=== PATIENT | male | born 1950 | race Caucasian/White ===

== ENCOUNTER 2017-11-26 11:18 | Emergency (ER) | payer MEDICARE, OTHER ==
[2017-11-26] MEDS ORDERED: Acetaminophen 500 MG Tab PO ONE (11:40)
[2017-11-26] MEDS ORDERED: HYDROmorphone 2 MG/ML SDV IM ONE ×2 (12:15→12:41)
[2017-11-26] MEDS ORDERED: Ondansetron 4 MG Tab.DIS PO ONE (12:16)
[2017-11-26] MEDS ORDERED: HYDROmorphone 2 MG/ML SDV ONE (12:42)
--- NOTE | 2017-11-28 12:36 | CR ---
INDICATION: Right ankle injury. RIGHT ANKLE: Three views of the right ankle were obtained 11/26/2017. No comparisons. Bimalleolar fractures are noted with lateral subluxation of the talus with respect to the tibia. Lateral offset of the distal fibular and medial malleolar fracture fragments is noted. A comminuted fracture is present at the medial malleolus. IMPRESSION: Bimalleolar fracture subluxation. MTDD
--- NOTE | 2017-11-30 10:17 | ER ---
DATE SEEN: 11/26/2017 TIME SEEN: The patient was seen at 0030 hours. HISTORY OF PRESENT ILLNESS: This is a pleasant 67-year-old retired, male, who comes in with a history of fall. He was at [facility]. He suddenly lost his balance and fell down. He denies chest pain, shortness of breath, myocardial infarction, or CVA. He has hypertension, diabetes, and is status post cholecystectomy, appendectomy, and documented diverticulosis and also calcification of head of the pancreas (08/21/[address] of the abdomen). He has also extensive atherosclerotic vascular disease with calcification and plaque formation in his abdominal vessels. He has a very significant history of copper shortage after he had a gastric resection for ulcers. It took four years for them to diagnose the copper shortage. He went to [facility]. 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 No history of gait discomfort, headache, or head trauma with fall this morning. He denies upper extremity injury, but he has extensive deformity of his right lower extremity medial and lateral malleoli. Vital signs with blood pressure 115/73, heart rate 81 and sinus, respiratory rate 18, oxygen saturation 96, he has a bradycardia of 48, temperature is 36.4 degrees centigrade, and 84.8 kg. ALLERGIES: Codeine, venlafaxine, and egg whites. MEDICATIONS: 1. Optive for his eye. 2. Carboxymethylcellulose-glycerin. 3. Levothyroxine 25 mcg daily. 4. Simvastatin 40 mg daily. 5. Lisinopril 20 mg daily. 6. Terazosin 5 mg daily. 7. Lasix 40 mg daily. 8. Finasteride 5 mg. 9. Ropinirole 0.5 mg. 10.Bentyl 10 mg p.r.n. 11.Multivitamins. 12.Omeprazole 20 mg. 13.Gabapentin 300 mg. 14.Potassium chloride 10 mEq. 15.Acidophilus. 16.Cyanocobalamin. 17.Primidone (Mysoline). 18.Glucosamine chondroitin. 19.Ferrous sulfate. 20.Calcium carbonate. 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 PHYSICAL EXAMINATION: VITAL SIGNS: Blood pressure 115/73, heart rate 81, respirations 18, oxygen saturation 96%, and temperature is 36.4 degrees centigrade. GENERAL: The patient is a tall, athletic man, who is in moderate discomfort with marked swelling in right lower extremity. HEENT: PERRLA intact. Pharynx is without abnormality. TMs negative. LUNGS: Clear without rales, rhonchi, or wheezes. HEART: S1 and S2. No murmur. ABDOMEN: Soft. No guarding. No abdominal discomfort. No CVA percussion tenderness or spinous process tenderness. EXTREMITIES: Hips without abnormality. Right lower extremity has prominent, marked swelling at the medial and lateral malleoli with dorsalis pedis intact. Bilateral lower extremity mild stasis dermatitis. DIAGNOSTIC STUDIES: X-ray reveals a bimalleolar fracture of right lower extremity with partial talar shift. As mentioned - is offset. EMERGENCY ROOM COURSE: The patient received 2 mg Dilaudid plus Zofran. With the nurse and the woman who has arrived with him (I am not sure if she is his or his daughter), with traction, the ankle was reduced and placed in anatomical position. Dorsalis pedis is intact, and an Orthoplast posterior splint was applied by MD with ample padding placement. The patient tolerated the procedure well. Pulses and sensation intact with posterior splint in place. PLAN: 1. The patient is dismissed. Follow up with Dr. Bertrand. 2. Dr. Bertrand's staff will call him tomorrow and make arrangements for a preop H and P. 3. He is to elevate his leg and not walk, only to go to the bathroom or only to get up and eat. Otherwise, it needs to be above his heart to diminish the swelling. 4. Ice packs. 5. Percocet 1 to 2 tablets q.4-6 hours p.r.n., [address] Bertrand has been contacted, and his staff will be calling the patient tomorrow and make arrangements for followup and surgery. Surgery is planned probably on Tuesday this week, November 30, 2017. /[id number] 193 SULEIMAN/BAKARI LAWSON
== END 2017-11-26 13:30 | disposition home or self-care (01) ==
LOC: FB.ED 11:18
DX: S82.841A Displaced bimalleolar fracture of right lower leg, initial encounter for closed fracture (principal); Z79.899 Other long term (current) drug therapy; W18.30XA Fall on same level, unspecified, initial encounter; Y92.513 Shop (commercial) as the place of occurrence of the external cause; Z88.5 Allergy status to narcotic agent; Z88.8 Allergy status to other drugs, medicaments and biological substances
CPT/HCPCS: 12042; 27810; 73610; 96372; 99283; A9270; J1170

== ENCOUNTER 2017-11-30 07:16 | Day surgery (SDC) | payer MEDICARE, OTHER ==
[2017-11-30] MEDS ORDERED: Lactated Ringers 1,000 ML IV SCH (07:30)
[2017-11-30] MEDS ORDERED: ceFAZolin 2 GM in Premix Bag 1 BAG IV ONE (09:00)
--- NOTE | 2017-11-30 09:42 | PCM.CONS ---
H&P History of Present Illness - General Date of Service: 11/30/17 Admit Problem/Dx: Admission Diagnosis/Problem Admission Diagnosis/Problem Fracture of ankle Source of Information: Patient, Family History Limitations: Reports: No Limitations - History of Present Illness Onset of Symptoms: Reports: Sudden Symptom Onset Date: 11/27/17 Duration of Symptoms: Reports: Day(s): Location: Reports: Lower Extremity, Right Quality: Reports: Ache, Burning, Dull Severity: Moderate Improves with: Reports: Immobilization Worsens with: Reports: Movement Associated Symptoms: Reports: No Other Symptoms - Related Data Allergies/Adverse Reactions: Allergies Allergy/AdvReac Type Severity Reaction Status Date / Time codeine Allergy Difficulty Verified 11/30/17 08:17 Breathing venlafaxine [From Effexor] Allergy Tachycardia Verified 11/30/17 08:17 egg white Allergy Diarrhea Uncoded 11/30/17 08:17 Home Medications: Home Meds Calcium Carb/Vitamin D3/Soyb [V-R Soy Formula Caplet] 1 ea PO BID 11/29/17 [ History] Carboxymethyl/Gly/Poly80/Pf [Refresh Optive Mateo-3 Drops] 1 drop EYEBOTH ASDIRECTED PRN 11/29/17 [History] Cholecalciferol (Vitamin D3) [Vitamin D3] 5,000 units PO DAILY 11/29/17 [History ] Cupric Sulfate Pentahydrate [Cupric Sulfate] 2 mg PO BID 11/29/17 [History] Cyanocobalamin (Vitamin B-12) [B-12] 1,000 mcg PO DAILY 11/29/17 [History] Dicyclomine [Bentyl] 10 mg PO ASDIRECTED PRN 11/29/17 [History] Ferrous Sulfate [Ferosul] 325 mg PO DAILY 11/29/17 [History] Finasteride [Proscar] 5 mg PO BEDTIME 11/29/17 [History] Furosemide 40 mg PO DAILY PRN 11/29/17 [History] Gabapentin [Neurontin] 900 mg PO TID 11/29/17 [History] Gluc 2KCl/Chondr/Jeri Hy/Hy Ac [Glucosamine & Chondroitin Cap] 1 ea PO BID 11/29 [History] Lactobacillus Acidophilus [Acidophilus] 2 ea PO DAILY 11/29/17 [History] Levothyroxine 25 mcg PO DAILY 11/29/17 [History] Lisinopril 20 mg PO DAILY 11/29/17 [History] Multivitamin with Minerals [Multiple Vitamin] 1 ea PO DAILY 11/29/17 [History] Omeprazole 20 mg PO ACBREAKFAST 11/29/17 [History] Potassium Chloride 10 meq PO BIDMEALS 11/29/17 [History] Primidone [Mysoline] 50 mg PO BEDTIME 11/29/17 [History] Simvastatin [Zocor] 40 mg PO BEDTIME 11/29/17 [History] Terazosin [Hytrin] 5 mg PO BEDTIME 11/29/17 [History] Vit C/Clara Ac/Lut/Copper/ZnOx [Preservision Lutein Softgel] 1 ea PO DAILY [History] rOPINIRole [Requip] 0.5 mg PO BEDTIME 11/29/17 [History] oxyCODONE HCl/Acetaminophen [Percocet 5-325 mg Tablet] 1 each PO Q4HR PRN [History] Past Medical History HEENT History: Reports: Impaired Vision, Macular Degeneration, Other (See Below) Other HEENT History: macular scar of the right eye. NUCLEAR SCLEROSIS BILATERAL ,. SEASONAL ALLERGIES Cardiovascular History: Reports: High Cholesterol, Hypertension Respiratory History: Reports: Other (See Below) Other Respiratory History: seasonal allergies Gastrointestinal History: Reports: GERD Genitourinary History: Reports: Other (See Below) Other Genitourinary History: benign prostatic hyperplasia without urinary tract symptoms. Musculoskeletal History: Reports: Fracture, Other (See Below) Other Musculoskeletal History: chronic fatigue syndrome, idiopathic peripheral neuropathy. Neurological History: Reports: Neuropathy, Peripheral Other Neuro History: MYOPATHY Psychiatric History: Reports: None Endocrine/Metabolic History: Reports: Hypothyroidism Hematologic History: Reports: Anemia Immunologic History: Reports: None Oncologic (Cancer) History: Reports: None Dermatologic History: Reports: Other (See Below) - Past Surgical History Head Surgeries/Procedures: Reports: None HEENT Surgical History: Reports: Naso-Sinus Surgery, Tonsillectomy Other Cardiovascular Surgeries/Procedures: CARDIAC CATHETERIZATION 2008,2009 Respiratory Surgical History: Reports: None GI Surgical History: Reports: Appendectomy, Bariatric Procedure, Cholecystectomy , Colonoscopy, EGD, Hernia Repair/Other Other GI Surgeries/Procedures: GASTRIC BIPASS 2009 Male Surgical History: Reports: Vasectomy Endocrine Surgical History: Reports: None Neurological Surgical History: Reports: None Musculoskeletal Surgical History: Reports: Other (See Below) Other Musculoskeletal Surgeries/Procedures:: CYST REMOVED FROM RIGHT KNEE Oncologic Surgical History: Reports: None Dermatological Surgical History: Reports: Other (See Below) Social & Family History - Family History Family Medical History: Noncontributory - Tobacco Use Smoking Status *Q: Never Smoker - Caffeine Use Caffeine Use: Reports: Soda - Recreational Drug Use Recreational Drug Use: No H&P Review of Systems - Review of Systems: Review Of Systems: See Below General: Reports: No Symptoms HEENT: Reports: No Symptoms Pulmonary: Reports: No Symptoms Cardiovascular: Reports: No Symptoms Gastrointestinal: Reports: No Symptoms Genitourinary: Reports: No Symptoms Musculoskeletal: Reports: Leg Pain, Joint Pain, Joint Swelling Skin: Reports: No Symptoms Psychiatric: Reports: No Symptoms Neurological: Reports: No Symptoms Hematologic/Lymphatic: Reports: No Symptoms Immunologic: Reports: No Symptoms Exam - Exam Exam: See Below - Vital Signs Vital Signs: Last Vital Signs Temp 97.7 F 11/30/17 07:49 Pulse 82 11/30/17 07:49 Resp 14 11/30/17 07:49 BP 137/96 H 11/30/17 07:49 Pulse Ox 96 11/30/17 07:49 Weight: 187 lb - Exam General: Alert, Oriented HEENT: PERRLA, Conjunctiva Clear, Hearing Intact, Mucosa Moist & [place] Neck: Supple, Trachea Midline Lungs: Normal Respiratory Effort GI/Abdominal Exam: No Organomegaly, No Distention Extremities: Joint Swelling, Limited Range of Motion Peripheral Pulses: 2+: Dorsalis Pedis (L), Dorsalis Pedis (R) Skin: Warm, Dry, Intact, Ecchymosis Neurological: Cranial Nerves Intact, Reflexes Equal Bilateral Neuro Extensive - Mental Status: Alert, Oriented x3, Normal Mood/Affect Psychiatric: Alert, Normal Affect, Normal Mood Consult PN Assessment/Plan Procedures: Procedures CT ABD & PELV W/CONTRAST (08/21/14) ELECTRICAL STIMULATION (03/17/16) MANUAL THERAPY 1/> REGIONS (04/27/16) MRI LUMBAR SPINE W/O DYE (03/10/16) PT EVALUATION (03/17/16) THERAPEUTIC EXERCISES (04/07/16) ULTRASOUND THERAPY (03/17/16) Problem List Initiated/Reviewed/Updated: Yes My Orders Last 24 Hours: My Active Orders 11/29/17 15:04 Resuscitation Status Routine 11/30/17 07:30 Patient Status [ADT] Routine Patient to Empty Bladder [RC] ASDIRECTED RT Incentive Spirometry [RC] ASDIRECTED Verify Patient Consent Obtain [RC] ASDIRECTED Lactated Ringers [Ringers, Lactated] 1,000 ml IV ASDIRECTED Peripheral IV Insertion Adult [OM.PC] Routine Sequential Compression Device [OM.PC] Routine 11/30/17 Breakfast Nothing Per Oral Diet [DIET] Plan: A: 67 yo male closed bimalleolar ankle fracture P: H and P done by outside physician. Will perform ORIF today. 2 week follow up in ortho clinic. NWB RLE on crutches or walker for 6-9 weeks. No driving 9 weeks. Requesting Provider: lalita Patient History Reviewed: Yes Admission H&P Reviewed: Yes Notified Requestor: Yes
[2017-11-30] MEDS ORDERED: Midazolam 1 MG/ML 2 ML SDV IV ONE (10:00)
[2017-11-30] MEDS ORDERED: Lactated Ringers 1,000 ML IV ONE (10:00)
[2017-11-30] MEDS ORDERED: Ketorolac 30 MG/ML SDV IVPUSH ONE (10:00)
[2017-11-30] MEDS ORDERED: Bupivacaine 0.75%/D5W 2 ML Amp INJECT ONE (10:00)
[2017-11-30] MEDS ORDERED: Propofol 200 MG/20 ML SDV IV ONE (10:00)
[2017-11-30] MEDS ORDERED: fentaNYL 100 MCG/2 ML SDV IV ONE (10:00)
[2017-11-30] MEDS ORDERED: ePHEDrine 50 MG/ML SDV IV ONE (10:00)
[2017-11-30] MEDS ORDERED: Bupivacaine 0.5%/EPINEPHrine 1:200,000 50 ML MDV INJECT ONE (11:24)
[2017-11-30] MEDS ORDERED: Acetaminophen/oxyCODONE 325-5 MG Tab PO ONE (12:46)
[2017-11-30] MEDS ORDERED: Ketorolac 30 MG/ML SDV IM ONE (13:04)
--- NOTE | 2017-11-30 14:57 | CR ---
INDICATION: ORIF of ankle fracture. FLUOROSCOPY UP TO ONE HOUR: 0.1 minute fluoroscopy time with C-arm in OR was utilized in open reduction of bimalleolar fracture. Good position and alignment of the medial and lateral malleolar fracture fragments appears to be satisfactory with two screws fixing the fracture fragments of the medial malleolus and a plate with screws and one single screw fixing the fibular fracture fragments. The ankle mortise appears to be intact. MEDARDOD
--- NOTE | 2017-12-07 16:09 | OR ---
DATE OF OPERATION: 11/30/2017 SURGEON: Atul Bertrand DO PREOPERATIVE DIAGNOSIS: Right bimalleolar ankle fracture, closed. POSTOPERATIVE DIAGNOSIS: Right bimalleolar ankle fracture, closed. PROCEDURE: Open reduction and internal fixation, right bimalleolar ankle fracture. ANESTHESIA: Spinal plus conscious sedation. FLUIDS: Lactated Ringer's solution. ESTIMATED BLOOD LOSS: Less than 25 mL. COMPLICATIONS: None. SPECIMENS: None. DISCHARGE DISPOSITION: Stable to PACU. HISTORY/INDICATIONS FOR THE PROCEDURE: The patient was seen on the morning of the surgery. He had been seen in emergency department, where he was found to have bimalleolar ankle fracture. I was called and asked the emergency department to put him in a posterior splint. He was [facility]operatively [facility] for preoperative history and physical. Risks and benefits of the procedure were explained to the patient and informed consent was obtained. Preoperative imaging confirmed the above-mentioned diagnosis. DETAILS OF THE PROCEDURE: The patient was seen preoperatively by myself and anesthesia staff in the preoperative holding area, where the operative site was marked. He was brought to the operative suite by the anesthesia staff where spinal anesthesia plus conscious sedation was administered. A well-padded tourniquet was placed on the right thigh. A bump was placed under right hip. All extremities found to be well padded. The right lower extremity was prepped and draped in a sterile manner. A time-out was called identifying the correct patient, the correct procedure, the correct site, and that antibiotics had been infiltrated at appropriate period of time. The right lower extremity was then exsanguinated. Tourniquet was raised to 300 mmHg. I then made an incision over the distal fibula and then used an elevator, bluntly raised the tissue off the bone and visualized the fracture site. I irrigated the fracture site, removed any blood clots. I then used a clamp to reduce the fracture and then placed a leg screw. We then placed an anatomic distal fibular plate and then placed my cortical screws first followed by the distal locking screws. After this, I completely irrigated with saline and then closed with #1 Stratafix and skin rachelle. I then focused on the medial malleolar fragment. I made an incision over the distal medial malleolus. I was able to visualize the fracture site. The distal fragment had spun. Hence, I did take a little bit of time to get my best anatomical reduction possible. I did drill a small hole in the proximal cortex that aided with bone clamp. I clamped it into position and confirmed good position under fluoroscopy. I then placed two 45 mm cannulated screws after placing the guidewires and confirming good placement. After the screws were placed, I removed the guidewires, irrigated with saline, closed with #1 Stratafix and skin rachelle. We then placed Betadine soaked Adaptic over both incisions followed by 4 x 4 sponges and Webril and then placed an Byron on, and then, placed him into a water boot. Tourniquet was let down after closure. The patient was then taken to the PACU in stable condition. /[id number] DISHA/BAKARI
== END 2017-11-30 14:22 | disposition home or self-care (01) ==
LOC: FB.SDS 07:16
PROVIDERS: ATTEND Orthopaedic Surgery
DX: S82.841A Displaced bimalleolar fracture of right lower leg, initial encounter for closed fracture (principal); I10 Essential (primary) hypertension; E03.9 Hypothyroidism, unspecified; E78.00 Pure hypercholesterolemia, unspecified; G60.9 Hereditary and idiopathic neuropathy, unspecified; G72.9 Myopathy, unspecified; K21.9 Gastro-esophageal reflux disease without esophagitis; N40.0 Benign prostatic hyperplasia without lower urinary tract symptoms; W19.XXXA Unspecified fall, initial encounter; Z79.899 Other long term (current) drug therapy; Z91.012 Allergy to eggs; Z88.5 Allergy status to narcotic agent; Z88.8 Allergy status to other drugs, medicaments and biological substances; Z91.048 Other nonmedicinal substance allergy status
CPT/HCPCS: 01480; 27814; 76000; A9270; C1713; J0690; J1885; J2250; J2704; J3010; J7120

== ENCOUNTER 2018-01-10 05:34 | Inpatient (IN) | payer MEDICARE, OTHER ==
[2018-01-10] MEDS: Sodium Chloride 0.9% 10 ML Syringe FLUSH PRN ×3 (05:40→10:05)
[2018-01-10] MEDS ORDERED: Sodium Chloride 0.9% 1,000 ML IV ONE ×2 (05:56→07:03)
--- NOTE | 2018-01-10 06:07 | EDM.PDOC ---
ED HPI GENERAL MEDICAL PROBLEM - General Chief Complaint: Abdominal Pain Stated Complaint: CONSTIPATION Time Seen by Provider: 01/10/18 05:55 Source of Information: Reports: Patient, Family History Limitations: Reports: No Limitations - History of Present Illness INITIAL COMMENTS - FREE TEXT/NARRATIVE: Presents with constipation x 3-4 days, no improvement with fleet's enema. Developed abdominal pain and urinary retention yesterday associated with nausea , no vomiting. History of partial gastrectomy and vagotomy (due to PUD), appendectomy and cholecystectomy. Denies h/o bowel obstruction. Also complains of dizziness and mouth feeling dry. Had ORIF of right ankle fracture 11/30/17, wound became infected 1 week ago, currently on Bactrim. Denies fevers, chills, chest pain, cough or shortness of breath. Location: Reports: Abdomen (lower) Quality: Reports: Ache Severity: Moderate Lower Abdominal Pain Score (Numeric/FACES): 6 - Related Data Allergies Allergy/AdvReac Type Severity Reaction Status Date / Time codeine Allergy Difficulty Verified 01/10/18 06:28 Breathing venlafaxine [From Effexor] Allergy Tachycardia Verified 01/10/18 06:28 egg white Allergy Diarrhea Uncoded 11/30/17 08:17 Home Meds: Home Meds Calcium Carb/Vitamin D3/Soyb [V-R Soy Formula Caplet] 1 ea PO BID 11/29/17 [ History] Carboxymethyl/Gly/Poly80/Pf [Refresh Optive Mateo-3 Drops] 1 drop EYEBOTH ASDIRECTED PRN 11/29/17 [History] Cholecalciferol (Vitamin D3) [Vitamin D3] 5,000 units PO DAILY 11/29/17 [History ] Cupric Sulfate Pentahydrate [Cupric Sulfate] 2 mg PO BID 11/29/17 [History] Cyanocobalamin (Vitamin B-12) [B-12] 1,000 mcg PO DAILY 11/29/17 [History] Dicyclomine [Bentyl] 10 mg PO ASDIRECTED PRN 11/29/17 [History] Ferrous Sulfate [Ferosul] 325 mg PO DAILY 11/29/17 [History] Finasteride [Proscar] 5 mg PO BEDTIME 11/29/17 [History] Furosemide 40 mg PO DAILY PRN 11/29/17 [History] Gabapentin [Neurontin] 900 mg PO TID 11/29/17 [History] Gluc 2KCl/Chondr/Jeri Hy/Hy Ac [Glucosamine & Chondroitin Cap] 1 ea PO BID 11/29 [History] Lactobacillus Acidophilus [Acidophilus] 2 ea PO DAILY 11/29/17 [History] Levothyroxine 25 mcg PO DAILY 11/29/17 [History] Lisinopril 20 mg PO DAILY 11/29/17 [History] Multivitamin with Minerals [Multiple Vitamin] 1 ea PO DAILY 11/29/17 [History] Omeprazole 20 mg PO ACBREAKFAST 11/29/17 [History] Potassium Chloride 10 meq PO BIDMEALS 11/29/17 [History] Primidone [Mysoline] 50 mg PO BEDTIME 11/29/17 [History] Simvastatin [Zocor] 40 mg PO BEDTIME 11/29/17 [History] Terazosin [Hytrin] 5 mg PO BEDTIME 11/29/17 [History] Vit C/Clara Ac/Lut/Copper/ZnOx [Preservision Lutein Softgel] 1 ea PO DAILY [History] rOPINIRole [Requip] 0.5 mg PO BEDTIME 11/29/17 [History] oxyCODONE HCl/Acetaminophen [Percocet 5-325 mg Tablet] 1 each PO Q4HR PRN [History] Sulfamethoxazole/Trimethoprim [Septra DS] 1 tab PO BID 01/10/18 [History] Past Medical History HEENT History: Reports: Impaired Vision, Macular Degeneration, Other (See Below) Other HEENT History: macular scar of the right eye. NUCLEAR SCLEROSIS BILATERAL ,. SEASONAL ALLERGIES Cardiovascular History: Reports: High Cholesterol, Hypertension. Denies: CAD, [place] Respiratory History: Reports: Other (See Below) Other Respiratory History: seasonal allergies Gastrointestinal History: Reports: GERD, PUD Genitourinary History: Reports: Other (See Below) Other Genitourinary History: benign prostatic hyperplasia without urinary tract symptoms. Musculoskeletal History: Reports: Fracture, Other (See Below) Other Musculoskeletal History: chronic fatigue syndrome, idiopathic peripheral neuropathy. Neurological History: Reports: Neuropathy, Peripheral Other Neuro History: MYOPATHY Psychiatric History: Reports: None Endocrine/Metabolic History: Reports: Hypothyroidism Hematologic History: Reports: Anemia Immunologic History: Reports: None Oncologic (Cancer) History: Reports: None Dermatologic History: Reports: Other (See Below) - Past Surgical History Head Surgeries/Procedures: Reports: None HEENT Surgical History: Reports: Naso-Sinus Surgery, Tonsillectomy Other Cardiovascular Surgeries/Procedures: CARDIAC CATHETERIZATION 2008,2009 Respiratory Surgical History: Reports: None GI Surgical History: Reports: Appendectomy, Cholecystectomy, Colonoscopy, EGD, Hernia Repair/Other, Other (See Below) Other GI Surgeries/Procedures: partial gastrectomy and vagotomy 1993, revision 2009 Male Surgical History: Reports: Vasectomy Endocrine Surgical History: Reports: None Neurological Surgical History: Reports: None Musculoskeletal Surgical History: Reports: Other (See Below) Other Musculoskeletal Surgeries/Procedures:: CYST REMOVED FROM RIGHT KNEE Oncologic Surgical History: Reports: None Dermatological Surgical History: Reports: Other (See Below) Social & Family History - Family History Family Medical History: Noncontributory - Tobacco Use Smoking Status *Q: Never Smoker - Caffeine Use Caffeine Use: Reports: Soda - Alcohol Use Alcohol Use History: No ED ROS GENERAL - Review of Systems Review Of Systems: See Below Constitutional: Reports: No Symptoms HEENT: Reports: Other (dry mouth) Respiratory: Reports: No Symptoms Cardiovascular: Reports: No Symptoms Endocrine: Reports: No Symptoms GI/Abdominal: Reports: Abdominal Pain (low), Constipation, Nausea. Denies: Vomiting : Reports: Urinary Retention Musculoskeletal: Reports: Other (right ankle pain) Skin: Reports: Other (redness to right ankle) Neurological: Reports: Dizziness. Denies: Headache Psychiatric: Reports: No Symptoms Immunologic: Reports: No Symptoms ED EXAM, GI/ABD - Physical Exam Exam: See Below Exam Limited By: No Limitations General Appearance: Alert, WD/WN, No Apparent Distress Eyes: Bilateral: Normal Appearance, EOMI Ears: Normal External Exam Nose: Normal Inspection Throat/Mouth: No Airway Compromise, Other (dry oral mucosa) Head: Atraumatic, Normocephalic Neck: Normal Inspection, Supple Respiratory/Chest: No Respiratory Distress, Lungs Clear, Normal Breath Sounds, No Accessory Muscle Use Cardiovascular: Regular Rate, Rhythm, No Gallop, No JVD, No Murmur, No Rub GI/Abdominal Exam: Normal Bowel Sounds, Soft, No Distention, No Abnormal Bruit, No Mass, Tender (suprapubic) Extremities: Other (erythema and warmth right ankle) Neurological: Alert, Oriented, No Motor/Sensory Deficits Psychiatric: Normal Affect, Normal Mood Skin Exam: No Rash EKG INTERPRETATION EKG Date: 01/10/18 Time: 06:20 Rhythm: NSR Rate (Beats/Min): 92 EKG Interpretation Comments: occasional PVCs, no acute ischemia Course - Vital Signs Last Recorded V/S: Last Vital Signs Temp 36.1 C 01/10/18 05:34 Pulse 82 01/10/18 07:00 Resp 20 01/10/18 05:34 BP 111/64 01/10/18 07:00 Pulse Ox 97 01/10/18 05:34 - Orders/Labs/Meds Orders: Active Orders 24 hr Category Date Time Status Admission Status [Patient Status] [ADT] Routine ADT 01/10/18 09:00 Ordered EKG Documentation Completion [RC] ASDIRECTED Care 01/10/18 05:49 Active Nino Catheter Insertion [Insert Urinary Catheter] [OM. Care 01/10/18 06:00 Ordered PC] Q24H Urinary Catheter Assessment [RC] QSHIFT Care 01/10/18 05:50 Active Abdomen Pelvis wo Cont [CT] Stat Exams 01/10/18 07:13 Taken CXR [Chest 1V Frontal] [CR] Stat Exams 01/10/18 07:13 Taken BASIC METABOLIC PANEL,BMP [CHEM] Stat Lab 01/10/18 08:06 Ordered CULTURE BLOOD [BC] Stat Lab 01/10/18 06:15 Results CULTURE BLOOD [BC] Stat Lab 01/10/18 06:25 Results LACTIC ACID [CHEM] Stat Lab 01/10/18 08:05 Ordered UA W/MICROSCOPIC [URIN] Stat Lab 01/10/18 06:10 Ordered Sodium Chloride 0.9% [Normal Saline] 1,000 ml Med 01/10/18 08:45 Active IV ASDIRECTED Sodium Chloride 0.9% [Saline Flush] Med 01/10/18 05:57 Active 10 ml FLUSH ASDIRECTED PRN Sodium Chloride 0.9% [Saline Flush] Med 01/10/18 05:59 Active 10 ml FLUSH ASDIRECTED PRN Vancomycin 500 mg Med 01/10/18 08:15 Active Vancomycin 750 mg Sodium Chloride 0.9% [Normal Saline] 250 ml IV ONETIME metroNIDAZOLE/Normal Saline [Flagyl 500 MG in NS 100 ML Med 01/10/18 08:24 Active ] 500 mg Premix Bag 1 bag IV ONETIME Blood Culture x2 Reflex Set [OM.PC] Urgent Oth 01/10/18 05:49 Ordered Saline Lock Insert [OM.PC] Routine Oth 01/10/18 05:57 Ordered Saline Lock Insert [OM.PC] Routine Oth 01/10/18 05:59 Ordered EKG 12 Lead [EK] Stat Ther 01/10/18 05:48 Ordered Medication Orders Vancomycin HCl 500 mg/Vancomycin HCl 750 mg/ Sodium Chloride 250 mls @ 200 mls/ hr IV ONETIME ONE Stop: 01/10/18 09:29 Last Admin: 01/10/18 08:09 Dose: 200 mls/hr Metronidazole 500 mg/ Premix 100 mls @ 100 mls/hr IV ONETIME ONE Stop: 01/10/18 09:23 Sodium Chloride (Normal Saline) 1,000 mls @ 100 mls/hr IV ASDIRECTED AMEENA Sodium Chloride (Saline Flush) 10 ml FLUSH ASDIRECTED PRN PRN Reason: Keep Vein Open Last Admin: 01/10/18 05:40 Dose: 10 ml Sodium Chloride (Saline Flush) 10 ml FLUSH ASDIRECTED PRN PRN Reason: Keep Vein Open Last Admin: 01/10/18 06:00 Dose: 10 ml Labs: Laboratory Tests 01/10/18 01/10/18 01/10/18 Range/Units 06:10 06:15 06:15 WBC 20.5 H (4.5-12.0) X10-3/uL RBC 4.75 (4.30-5.75) x10(6)uL Hgb 14.7 (11.5-15.5) g/dL Hct 42.6 (30.0-51.3) % MCV 89.6 (80-96) fL MCH 31.0 (27.7-33.6) pg MCHC 34.6 (32.2-35.4) g/dL RDW 12.7 (11.5-15.5) % Plt Count 297 (125-369) X10(3)uL MPV 8.6 (7.4-10.4) fL Add Manual Diff Yes Neutrophils % (Manual) 88 H (46-82) % Band Neutrophils % 4 (0-6) % Lymphocytes % (Manual) 4 L (13-37) % Monocytes % (Manual) 4 (4-12) % PT (8.7-11.1) INR (0.89-1.13) Sodium 133 L (135-145) mmol/L Potassium 4.0 (3.5-5.3) mmol/L Chloride 96 L (100-110) mmol/L Carbon Dioxide 19 L (21-32) mmol/L BUN 27 H (7-18) mg/dL Creatinine 3.3 H* (0.70-1.30) mg/dL Est Cr Clr Drug Dosing 19.15 mL/min Estimated GFR (MDRD) 19 L (>60) BUN/Creatinine Ratio 8.2 L (9-20) Glucose 158 H (80-116) mg/dL Lactic Acid (0.4-2.2) mmol/L Calcium 9.7 (8.6-10.2) mg/dL Total Bilirubin 0.3 (0.1-1.3) mg/dL AST 17 (5-25) IU/L ALT 15 (12-36) U/L Alkaline Phosphatase 71 (56-112) IU/L Total Protein 6.8 (6.0-8.0) g/dL Albumin 3.2 (3.2-4.6) g/dL Globulin 3.6 g/dL Albumin/Globulin Ratio 0.9 Urine Color Yellow (YELLOW) Urine Appearance Slightly cloudy (CLEAR) Urine pH 5.0 (5.0-6.5) Ur Specific [place] 1.020 (1.010-1.025) Urine Protein Negative (NEGATIVE) mg/dL Urine Glucose (UA) Normal (NEGATIVE) mg/dL Urine Ketones Negative (NEGATIVE) mg/dL Urine Occult Blood Negative (NEGATIVE) Urine Nitrite Negative (NEGATIVE) Urine Bilirubin Negative (NEGATIVE) Urine Urobilinogen Normal (NEGATIVE) mg/dL Ur Leukocyte Esterase Negative (NEGATIVE) Urine RBC 0-5 (0) Urine WBC 0-5 (0) Ur Squamous Epith Cells Occasional (NS,R,O) Amorphous Sediment Moderate Urine Bacteria Rare H (NS) Blood Type Gel Antibody Screen 01/10/18 01/10/18 01/10/18 Range/Units 06:25 06:25 06:25 WBC (4.5-12.0) X10-3/uL RBC (4.30-5.75) x10(6)uL Hgb (11.5-15.5) g/dL Hct (30.0-51.3) % MCV (80-96) fL MCH (27.7-33.6) pg MCHC (32.2-35.4) g/dL RDW (11.5-15.5) % Plt Count (125-369) X10(3)uL MPV (7.4-10.4) fL Add Manual Diff Neutrophils % (Manual) (46-82) % Band Neutrophils % (0-6) % Lymphocytes % (Manual) (13-37) % Monocytes % (Manual) (4-12) % PT 10.2 (8.7-11.1) INR 1.05 (0.89-1.13) Sodium (135-145) mmol/L Potassium (3.5-5.3) mmol/L Chloride (100-110) mmol/L Carbon Dioxide (21-32) mmol/L BUN (7-18) mg/dL Creatinine (0.70-1.30) mg/dL Est Cr Clr Drug Dosing mL/min Estimated GFR (MDRD) (>60) BUN/Creatinine Ratio (9-20) Glucose (80-116) mg/dL Lactic Acid 5.3 H* (0.4-2.2) mmol/L Calcium (8.6-10.2) mg/dL Total Bilirubin (0.1-1.3) mg/dL AST (5-25) IU/L ALT (12-36) U/L Alkaline Phosphatase (56-112) IU/L Total Protein (6.0-8.0) g/dL Albumin (3.2-4.6) g/dL Globulin g/dL Albumin/Globulin Ratio Urine Color (YELLOW) Urine Appearance (CLEAR) Urine pH (5.0-6.5) Ur Specific [place] (1.010-1.025) Urine Protein (NEGATIVE) mg/dL Urine Glucose (UA) (NEGATIVE) mg/dL Urine Ketones (NEGATIVE) mg/dL Urine Occult Blood (NEGATIVE) Urine Nitrite (NEGATIVE) Urine Bilirubin (NEGATIVE) Urine Urobilinogen (NEGATIVE) mg/dL Ur Leukocyte Esterase (NEGATIVE) Urine RBC (0) Urine WBC (0) Ur Squamous Epith Cells (NS,R,O) Amorphous Sediment Urine Bacteria (NS) Blood Type A POSITIVE Gel Antibody Screen Negative Meds: Medications Generic Name Dose Route Start Last Admin Trade Name Freq PRN Reason Stop Dose Admin Vancomycin HCl 500 mg/ 250 mls @ 200 mls/hr 01/10/18 08:15 01/10/18 08:09 Vancomycin HCl 750 mg/ Sodium IV 01/10/18 09:29 200 mls/hr Chloride ONETIME ONE Administration Metronidazole 500 mg/ Premix 100 mls @ 100 mls/hr 01/10/18 08:24 IV 01/10/18 09:23 ONETIME ONE Sodium Chloride 1,000 mls @ 100 mls/hr 01/10/18 08:45 Normal Saline IV ASDIRECTED AMEENA Sodium Chloride 10 ml 01/10/18 05:57 01/10/18 05:40 Saline Flush FLUSH 10 ml ASDIRECTED PRN Administration Keep Vein Open Sodium Chloride 10 ml 01/10/18 05:59 01/10/18 06:00 Saline Flush FLUSH 10 ml ASDIRECTED PRN Administration Keep Vein Open Discontinued Medications Generic Name Dose Route Start Last Admin Trade Name David PRN Reason Stop Dose Admin Ceftriaxone Sodium Confirm 01/10/18 07:24 01/10/18 07:28 Rocephin Administered 01/10/18 07:25 Not Given Dose 2 gm .ROUTE .STK-MED ONE Ceftriaxone Sodium 2 gm 01/10/18 07:45 01/10/18 07:55 Rocephin IVPUSH 01/10/18 07:46 2 gm Q24H AMEENA Administration Hydromorphone HCl 0.5 mg 01/10/18 07:18 01/10/18 07:53 Dilaudid IVPUSH 01/10/18 07:19 0.5 mg ONETIME ONE Administration Sodium Chloride 1,000 mls @ 999 mls/hr 01/10/18 05:56 01/10/18 05:40 Normal Saline IV 01/10/18 06:56 999 mls/hr .BOLUS ONE Administration Sodium Chloride 1,000 mls @ 999 mls/hr 01/10/18 07:03 01/10/18 07:05 Normal Saline IV 01/10/18 08:03 999 mls/hr .BOLUS ONE Administration Sodium Chloride 500 mls @ 500 mls/hr 01/10/18 07:10 01/10/18 07:45 Normal Saline IV 01/10/18 08:09 500 mls/hr .BOLUS ONE Administration Ceftriaxone Sodium 2 gm/ 100 mls @ 200 mls/hr 01/10/18 07:12 01/10/18 07:28 Sodium Chloride IVPUSH 01/10/18 07:41 Not Given ONETIME ONE Ceftriaxone Sodium 2 gm/ 100 mls @ 200 mls/hr 01/10/18 07:27 01/10/18 07:55 Sodium Chloride IVPUSH 01/10/18 07:56 Not Given ONETIME ONE Ondansetron HCl 4 mg 01/10/18 07:18 01/10/18 07:50 Zofran IVPUSH 01/10/18 07:19 4 mg ONETIME ONE Administration - Radiology Interpretation Free Text/Narrative:: CT Abd/pelvis w/o contrast: Large amount of stool in the colon, particularly distally, consistent with constipation. Scattered areas of mild colonic wall thickening and pericolonic inflammation, which could be related to stercoral colitis. No free air or free fluid. CXR: NAD - Re-Assessments/Exams Free Text/Narrative Re-Assessment/Exam: 01/10/18 09:07 BP improved from 70/42 to 111/64 after 2.5 L NS. Nino placed, 100ml u/o initially, another 100ml u/o after fluid bolus. Pain has improved. Dr. Krishna agrees to accept patient for admission to [facility] Departure - Departure Time of Disposition: 09:09 Disposition: Admitted As Inpatient 67 Condition: Serious Clinical Impression: Obstipation, Colitis, BERTHA (acute kidney injury), Cellulitis of right ankle, Dehydration - Discharge Information *PRESCRIPTION DRUG MONITORING PROGRAM REVIEWED*: No *COPY OF PRESCRIPTION DRUG MONITORING REPORT IN PATIENT WILLIAM: Not Applicable Referrals: Maurice Malave MD [Primary Care Provider] - Forms: ED Department Discharge - My Orders Last 24 Hours: My Active Orders 01/10/18 05:48 EKG 12 Lead [EK] Stat 01/10/18 05:49 EKG Documentation Completion [RC] ASDIRECTED Blood Culture x2 Reflex Set [OM.PC] Urgent 01/10/18 05:50 Urinary Catheter Assessment [RC] QSHIFT 01/10/18 05:57 Sodium Chloride 0.9% [Saline Flush] 10 ml FLUSH ASDIRECTED PRN Saline Lock Insert [OM.PC] Routine 01/10/18 05:59 Sodium Chloride 0.9% [Saline Flush] 10 ml FLUSH ASDIRECTED PRN Saline Lock Insert [OM.PC] Routine 01/10/18 06:00 Nino Catheter Insertion [Insert Urinary Catheter] [OM.PC] Q24H 01/10/18 06:10 UA W/MICROSCOPIC [URIN] Stat 01/10/18 06:15 CULTURE BLOOD [BC] Stat 01/10/18 06:25 CULTURE BLOOD [BC] Stat 01/10/18 07:13 Abdomen Pelvis wo Cont [CT] Stat CXR [Chest 1V Frontal] [CR] Stat 01/10/18 08:05 LACTIC ACID [CHEM] Stat 01/10/18 08:06 BASIC METABOLIC PANEL,BMP [CHEM] Stat 01/10/18 08:15 Vancomycin 500 mg Vancomycin 750 mg Sodium Chloride 0.9% [Normal Saline] 250 ml IV ONETIME 01/10/18 08:24 metroNIDAZOLE/Normal Saline [Flagyl 500 MG in NS 100 ML] 500 mg Premix Bag 1 bag IV ONETIME 01/10/18 08:45 Sodium Chloride 0.9% [Normal Saline] 1,000 ml IV ASDIRECTED 01/10/18 09:00 Admission Status [Patient Status] [ADT] Routine - Assessment/Plan Last 24 Hours: My Active Orders 01/10/18 05:48 EKG 12 Lead [EK] Stat 01/10/18 05:49 EKG Documentation Completion [RC] ASDIRECTED Blood Culture x2 Reflex Set [OM.PC] Urgent 01/10/18 05:50 Urinary Catheter Assessment [RC] QSHIFT 01/10/18 05:57 Sodium Chloride 0.9% [Saline Flush] 10 ml FLUSH ASDIRECTED PRN Saline Lock Insert [OM.PC] Routine 01/10/18 05:59 Sodium Chloride 0.9% [Saline Flush] 10 ml FLUSH ASDIRECTED PRN Saline Lock Insert [OM.PC] Routine 01/10/18 06:00 Nino Catheter Insertion [Insert Urinary Catheter] [OM.PC] Q24H 01/10/18 06:10 UA W/MICROSCOPIC [URIN] Stat 01/10/18 06:15 CULTURE BLOOD [BC] Stat 01/10/18 06:25 CULTURE BLOOD [BC] Stat 01/10/18 07:13 Abdomen Pelvis wo Cont [CT] Stat CXR [Chest 1V Frontal] [CR] Stat 01/10/18 08:05 LACTIC ACID [CHEM] Stat 01/10/18 08:06 BASIC METABOLIC PANEL,BMP [CHEM] Stat 01/10/18 08:15 Vancomycin 500 mg Vancomycin 750 mg Sodium Chloride 0.9% [Normal Saline] 250 ml IV ONETIME 01/10/18 08:24 metroNIDAZOLE/Normal Saline [Flagyl 500 MG in NS 100 ML] 500 mg Premix Bag 1 bag IV ONETIME 01/10/18 08:45 Sodium Chloride 0.9% [Normal Saline] 1,000 ml IV ASDIRECTED 01/10/18 09:00 Admission Status [Patient Status] [ADT] Routine
[2018-01-10] MEDS ORDERED: Sodium Chloride 0.9% 500 ML IV ONE (07:10)
[2018-01-10] MEDS ORDERED: cefTRIAXone 2 GM in Sodium Chloride 0.9% 100 ML IVPUSH ONE ×2 (07:12→07:27)
[2018-01-10] MEDS ORDERED: Ondansetron 4 MG/2 ML SDV IVPUSH ONE (07:18)
[2018-01-10] MEDS ORDERED: HYDROmorphone 2 MG/ML SDV IVPUSH ONE (07:18)
[2018-01-10] MEDS ORDERED: cefTRIAXone 2 GM Vial ONE (07:24)
[2018-01-10] MEDS ORDERED: cefTRIAXone 2 GM Vial IVPUSH SCH (07:45)
[2018-01-10] MEDS ORDERED: Vancomycin 500 MG, Vancomycin 750 MG in Sodium Chloride 0.9% 250 ML IV ONE (08:15)
[2018-01-10] MEDS ORDERED: metroNIDAZOLE/Normal Saline 500 MG in Premix Bag 1 BAG IV ONE (08:24)
[2018-01-10] MEDS ORDERED: Sodium Chloride 0.9% 1,000 ML IV SCH (08:45)
--- NOTE | 2018-01-10 10:54 | CR ---
INDICATION: Sepsis. CHEST: An AP upright portable view of the chest was obtained 01/10/2018 and compared with 12/22/2007, revealing a slightly prominent left ventricular contour, which can be seen with small ventricular aneurysms. The heart was not grossly enlarged but appeared more prominent than on the previous study, at least partially due to the AP position and poor inspiration. No definite cardiomegaly was seen. The aorta is tortuous with calcification in the arch. Overlying EKG leads are noted. An active infiltrate or effusion was not identified. Lungs appear to be somewhat hyperaerated. IMPRESSION: No acute process. Findings as noted above. MTDD
[2018-01-10] MEDS ORDERED: Belladonna Alkaloids/Opium 16.2-30 MG Supp RECTAL ONE (11:15)
[2018-01-10] MEDS ORDERED: Carboxymethylcellulose 0.5%/Glycerin 0.9% Ophth Soln 15 ML Bottle EYEBOTH PRN (11:16)
[2018-01-10] MEDS ORDERED: Ondansetron 4 MG Tab.DIS PO PRN (11:19)
[2018-01-10] MEDS ORDERED: HYDROmorphone 2 MG/ML SDV IVPUSH PRN (11:19)
[2018-01-10] MEDS ORDERED: Acetaminophen 650 MG Supp RECTAL PRN (11:19)
[2018-01-10] MEDS: Pantoprazole 40 MG Vial IVPUSH SCH (12:02)
--- NOTE | 2018-01-10 12:37 | PCM.HP ---
H&P History of Present Illness - General Date of Service: 01/10/18 Admit Problem/Dx: Admission Diagnosis/Problem Admission Diagnosis/Problem Acute kidney injury Source of Information: Patient, Family, Old Records, Provider History Limitations: Reports: No Limitations - History of Present Illness Initial Comments - Free Text/Narative: This is a 67-year-old male who on 11/30/17 fell and broke his right ankle. Had open reduction and internal fixation and since that time has had multiple challenges. He initially developed a cellulitis of the wound and was started on Bactrim on the . He's had a terrible time with narcotic constipation and has been having very few bowel movements. In spite of all this he was feeling okay until last night when he became acutely dizzy with a dry mouth and felt like he was going to pass out. [place] like he needed to have a bowel movement. He had no fevers, no chills, no sweats, no nausea or vomiting, has been leaking liquidy stool over the last 3-4 days. He fell last night in the bathroom and was unable to void until this morning they came into the emergency department because he was having lower abdominal pain. He was found to have acute urinary retention and a Nino catheter was placed with good urine results. UA was negative. Of note the patient was hypotensive with a blood pressure 70/42 on arrival and pulse of 109. IV fluids were started immediately and he responded quickly to this with blood pressure coming up into the 110 range. Labs showed a white count of 20.5 with 88% neutrophils and 4 bands and creatinine was 3.3. CT scan of the abdomen and pelvis was performed due to pain and the final reading came back showing significant obstipation with lots of stool in the colon and stercoral colitis which is a form of ischemic colitis caused by significant stool pressure on the bowel wall resulting in ischemia and necrosis. I was asked to admit the patient for sepsis, possible right ankle cellulitis versus colitis, acute kidney injury. Past medical history: Patient has a history of multiple abdominal surgeries with gallbladder removal and partial gastrectomy in 2008 due to recurrent peptic ulcer disease, initial gastrectomy and ulcer treatment with vagotomy was in 1992. Appendectomy in 1968. Tonsillectomy in 2000. History of myocardial infarction, chest pain, CVA. No history of lung problems. 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 Chronic right foot swelling, unknown etiology for which the patient occasionally uses Lasix as needed. BPH followed in [place]. Strong family history of colon cancer with patient receiving regularly scheduled colonoscopies here at a [facility]. Last colonoscopy was a little over a year ago. Recent ankle fracture which is thought to be perhaps a pathologic fracture. The patient was just standing and the ankle gave way and broke. Social history: The patient and his live in [place]. He is a nontobacco user, no alcohol use, no IV drug use. Has 3 grown children. 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 His mother just a few days ago at the prison and her is Tuesday. Family history: The patient's mother at 96 years old just a few days ago at the prison and really from old age. She had colon cancer tightness that was treated successfully. The patient's father at 84 of colon cancer. He has 2 healthy brothers and 2 sisters one of whom had colon cancer and ended up with a colostomy. Lower Abdominal Pain Score (Numeric/FACES): 5 - Related Data Allergies/Adverse Reactions: Allergies Allergy/AdvReac Type Severity Reaction Status Date / Time codeine Allergy Difficulty Verified 01/10/18 06:28 Breathing venlafaxine [From Effexor] Allergy Tachycardia Verified 01/10/18 06:28 egg white Allergy Diarrhea Uncoded 11/30/17 08:17 Home Medications: Home Meds Calcium Carb/Vitamin D3/Soyb [V-R Soy Formula Caplet] 1 ea PO BID 11/29/17 [ History] Cupric Sulfate Pentahydrate [Cupric Sulfate] 6 tab PO DAILY 11/29/17 [History] Cyanocobalamin (Vitamin B-12) [B-12] 1,000 mcg PO DAILY 11/29/17 [History] Dicyclomine [Bentyl] 10 mg PO ASDIRECTED PRN 11/29/17 [History] Ferrous Sulfate [Ferosul] 325 mg PO DAILY 11/29/17 [History] Finasteride [Proscar] 5 mg PO BEDTIME 11/29/17 [History] Furosemide 40 mg PO DAILY PRN 11/29/17 [History] Gabapentin [Neurontin] 900 mg PO TID 11/29/17 [History] Gluc 2KCl/Chondr/Jeri Hy/Hy Ac [Glucosamine & Chondroitin Cap] 1 ea PO BID 11/29 [History] Lactobacillus Acidophilus [Acidophilus] 2 ea PO DAILY 11/29/17 [History] Levothyroxine 25 mcg PO DAILY 11/29/17 [History] Lisinopril 20 mg PO DAILY 11/29/17 [History] Multivitamin with Minerals [Multiple Vitamin] 1 ea PO DAILY 11/29/17 [History] Omeprazole 20 mg PO ACBREAKFAST 11/29/17 [History] Potassium Chloride 10 meq PO BIDMEALS 11/29/17 [History] Primidone [Mysoline] 50 mg PO BEDTIME 11/29/17 [History] Simvastatin [Zocor] 40 mg PO BEDTIME 11/29/17 [History] Terazosin [Hytrin] 5 mg PO BEDTIME 11/29/17 [History] Vit C/Clara Ac/Lut/Copper/ZnOx [Preservision Lutein Softgel] 1 ea PO DAILY [History] rOPINIRole [Requip] 0.5 mg PO BEDTIME 11/29/17 [History] Carboxymethylcellulos/Glycerin [Lubricant 0.5-0.9% Eye Drops] 1 drop EYEBOTH ASDIRECTED PRN 01/10/18 [History] Cholecalciferol (Vitamin D3) [Vitamin D3] 2,000 unit PO DAILY 01/10/18 [History] Sulfamethoxazole/Trimethoprim [Septra DS] 1 tab PO BID 01/10/18 [History] Past Medical History HEENT History: Reports: Cataract, Impaired Vision, Macular Degeneration, Other ( See Below) Other HEENT History: macular scar of the right eye. NUCLEAR SCLEROSIS BILATERAL ,. SEASONAL ALLERGIES Cardiovascular History: Reports: Arrhythmia, High Cholesterol, Hypertension Respiratory History: Reports: Other (See Below) Other Respiratory History: seasonal allergies Gastrointestinal History: Reports: Chronic Constipation, GERD, PUD Other Gastrointestinal History: constipation after surgery Genitourinary History: Reports: Other (See Below) Other Genitourinary History: benign prostatic hyperplasia without urinary tract symptoms. Musculoskeletal History: Reports: Arthritis, Fracture, Other (See Below) Other Musculoskeletal History: chronic fatigue syndrome, idiopathic peripheral neuropathy, fx R ankle with ORIF 6/6/18 Neurological History: Reports: Neuropathy, Peripheral, Other (See Below) Other Neuro History: MYOPATHY Psychiatric History: Reports: None Endocrine/Metabolic History: Reports: Hypothyroidism, Vitamin D Deficiency Hematologic History: Reports: Anemia, Blood Transfusion(s) Immunologic History: Reports: None Oncologic (Cancer) History: Reports: None Dermatologic History: Reports: Other (See Below) - Infectious Disease History Infectious Disease History: Reports: Chicken Pox, Measles, Shingles - Past Surgical History Head Surgeries/Procedures: Reports: None HEENT Surgical History: Reports: Naso-Sinus Surgery, Oral Surgery, Tonsillectomy Other Cardiovascular Surgeries/Procedures: CARDIAC CATHETERIZATION 2008,2009 Respiratory Surgical History: Reports: None GI Surgical History: Reports: Appendectomy, Cholecystectomy, Colonoscopy, EGD, Hernia Repair/Other, Other (See Below) Other GI Surgeries/Procedures: partial gastrectomy and vagotomy 1992, revision 2008 Male Surgical History: Reports: Vasectomy Endocrine Surgical History: Reports: None Neurological Surgical History: Reports: None Musculoskeletal Surgical History: Reports: ORIF, Other (See Below) Other Musculoskeletal Surgeries/Procedures:: CYST REMOVED FROM RIGHT KNEE, R ankle surgery Oncologic Surgical History: Reports: None Social & Family History - Family History Family Medical History: Noncontributory - Tobacco Use Smoking Status *Q: Never Smoker - Caffeine Use Caffeine Use: Reports: Soda - Recreational Drug Use Recreational Drug Use: No H&P Review of Systems - Review of Systems: Review Of Systems: ROS reveals no pertinent complaints other than HPI. Gastrointestinal: Reports: Abdominal Pain (No black, bloody or tarry stool. Last BM 4 days ago.) Exam - Exam Exam: See Below - Vital Signs Vital Signs: Last Vital Signs Temp 36.1 C 01/10/18 05:34 Pulse 82 01/10/18 07:00 Resp 20 01/10/18 05:34 BP 111/64 01/10/18 07:00 Pulse Ox 97 01/10/18 05:34 Weight: 82.463 kg - Exam General: Alert, Oriented, Cooperative HEENT: PERRLA, Conjunctiva Clear, Mucosa Moist & [place], Posterior Pharynx Clear Neck: Supple Lungs: Clear to Auscultation, Normal Respiratory Effort Cardiovascular: Regular Rate, Regular Rhythm, Normal S1, Normal S2 GI/Abdominal Exam: Normal Bowel Sounds, Soft, Distended (moderately tender throughout the suprapubic region, bowel sounds present, slightly distended and tympanitic. No rebound tenderness or guarding. No rigidity.), Tender Back Exam: Normal Inspection, Full Range of Motion Extremities: Pedal Edema (trace edema with mild erythema on either side of the right ankle surrounding each incision site. No palpable fluid in the joint. ) Neuro Extensive - Mental Status: Alert, Oriented x3, Normal Mood/Affect, Normal Cognition, Memory Intact Neuro Extensive - Motor, Sensory, Reflexes: CN II-XII Intact - Patient Data Lab Results Last 24 hrs: Laboratory Results - last 24 hr 01/10/18 01/10/18 01/10/18 Range/Units 06:10 06:15 06:15 WBC 20.5 H (4.5-12.0) X10-3/uL RBC 4.75 (4.30-5.75) x10(6)uL Hgb 14.7 (11.5-15.5) g/dL Hct 42.6 (30.0-51.3) % MCV 89.6 (80-96) fL MCH 31.0 (27.7-33.6) pg MCHC 34.6 (32.2-35.4) g/dL RDW 12.7 (11.5-15.5) % Plt Count 297 (125-369) X10(3)uL MPV 8.6 (7.4-10.4) fL Add Manual Diff Yes Neutrophils % (Manual) 88 H (46-82) % Band Neutrophils % 4 (0-6) % Lymphocytes % (Manual) 4 L (13-37) % Monocytes % (Manual) 4 (4-12) % PT (8.7-11.1) INR (0.89-1.13) Sodium 133 L (135-145) mmol/L Potassium 4.0 (3.5-5.3) mmol/L Chloride 96 L (100-110) mmol/L Carbon Dioxide 19 L (21-32) mmol/L BUN 27 H (7-18) mg/dL Creatinine 3.3 H* (0.70-1.30) mg/dL Est Cr Clr Drug Dosing 19.15 mL/min Estimated GFR (MDRD) 19 L (>60) BUN/Creatinine Ratio 8.2 L (9-20) Glucose 158 H (80-116) mg/dL Lactic Acid (0.4-2.2) mmol/L Calcium 9.7 (8.6-10.2) mg/dL Total Bilirubin 0.3 (0.1-1.3) mg/dL AST 17 (5-25) IU/L ALT 15 (12-36) U/L Alkaline Phosphatase 71 (56-112) IU/L Total Protein 6.8 (6.0-8.0) g/dL Albumin 3.2 (3.2-4.6) g/dL Globulin 3.6 g/dL Albumin/Globulin Ratio 0.9 Urine Color Yellow (YELLOW) Urine Appearance Slightly cloudy (CLEAR) Urine pH 5.0 (5.0-6.5) Ur Specific [place] 1.020 (1.010-1.025) Urine Protein Negative (NEGATIVE) mg/dL Urine Glucose (UA) Normal (NEGATIVE) mg/dL Urine Ketones Negative (NEGATIVE) mg/dL Urine Occult Blood Negative (NEGATIVE) Urine Nitrite Negative (NEGATIVE) Urine Bilirubin Negative (NEGATIVE) Urine Urobilinogen Normal (NEGATIVE) mg/dL Ur Leukocyte Esterase Negative (NEGATIVE) Urine RBC 0-5 (0) Urine WBC 0-5 (0) Ur Squamous Epith Cells Occasional (NS,R,O) Amorphous Sediment Moderate Urine Bacteria Rare H (NS) Blood Type Gel Antibody Screen 01/10/18 01/10/18 01/10/18 Range/Units 06:25 06:25 06:25 WBC (4.5-12.0) X10-3/uL RBC (4.30-5.75) x10(6)uL Hgb (11.5-15.5) g/dL Hct (30.0-51.3) % MCV (80-96) fL MCH (27.7-33.6) pg MCHC (32.2-35.4) g/dL RDW (11.5-15.5) % Plt Count (125-369) X10(3)uL MPV (7.4-10.4) fL Add Manual Diff Neutrophils % (Manual) (46-82) % Band Neutrophils % (0-6) % Lymphocytes % (Manual) (13-37) % Monocytes % (Manual) (4-12) % PT 10.2 (8.7-11.1) INR 1.05 (0.89-1.13) Sodium (135-145) mmol/L Potassium (3.5-5.3) mmol/L Chloride (100-110) mmol/L Carbon Dioxide (21-32) mmol/L BUN (7-18) mg/dL Creatinine (0.70-1.30) mg/dL Est Cr Clr Drug Dosing mL/min Estimated GFR (MDRD) (>60) BUN/Creatinine Ratio (9-20) Glucose (80-116) mg/dL Lactic Acid 5.3 H* (0.4-2.2) mmol/L Calcium (8.6-10.2) mg/dL Total Bilirubin (0.1-1.3) mg/dL AST (5-25) IU/L ALT (12-36) U/L Alkaline Phosphatase (56-112) IU/L Total Protein (6.0-8.0) g/dL Albumin (3.2-4.6) g/dL Globulin g/dL Albumin/Globulin Ratio Urine Color (YELLOW) Urine Appearance (CLEAR) Urine pH (5.0-6.5) Ur Specific [place] (1.010-1.025) Urine Protein (NEGATIVE) mg/dL Urine Glucose (UA) (NEGATIVE) mg/dL Urine Ketones (NEGATIVE) mg/dL Urine Occult Blood (NEGATIVE) Urine Nitrite (NEGATIVE) Urine Bilirubin (NEGATIVE) Urine Urobilinogen (NEGATIVE) mg/dL Ur Leukocyte Esterase (NEGATIVE) Urine RBC (0) Urine WBC (0) Ur Squamous Epith Cells (NS,R,O) Amorphous Sediment Urine Bacteria (NS) Blood Type A POSITIVE Gel Antibody Screen Negative 01/10/18 Range/Units 08:45 WBC (4.5-12.0) X10-3/uL RBC (4.30-5.75) x10(6)uL Hgb (11.5-15.5) g/dL Hct (30.0-51.3) % MCV (80-96) fL MCH (27.7-33.6) pg MCHC (32.2-35.4) g/dL RDW (11.5-15.5) % Plt Count (125-369) X10(3)uL MPV (7.4-10.4) fL Add Manual Diff Neutrophils % (Manual) (46-82) % Band Neutrophils % (0-6) % Lymphocytes % (Manual) (13-37) % Monocytes % (Manual) (4-12) % PT (8.7-11.1) INR (0.89-1.13) Sodium 135 (135-145) mmol/L Potassium 4.0 (3.5-5.3) mmol/L Chloride 99 L (100-110) mmol/L Carbon Dioxide 20 L (21-32) mmol/L BUN 27 H (7-18) mg/dL Creatinine 2.8 H* (0.70-1.30) mg/dL Est Cr Clr Drug Dosing 22.57 mL/min Estimated GFR (MDRD) 23 L (>60) BUN/Creatinine Ratio 9.6 (9-20) Glucose 140 H (80-116) mg/dL Lactic Acid (0.4-2.2) mmol/L Calcium 9.2 (8.6-10.2) mg/dL Total Bilirubin (0.1-1.3) mg/dL AST (5-25) IU/L ALT (12-36) U/L Alkaline Phosphatase (56-112) IU/L Total Protein (6.0-8.0) g/dL Albumin (3.2-4.6) g/dL Globulin g/dL Albumin/Globulin Ratio Urine Color (YELLOW) Urine Appearance (CLEAR) Urine pH (5.0-6.5) Ur Specific [place] (1.010-1.025) Urine Protein (NEGATIVE) mg/dL Urine Glucose (UA) (NEGATIVE) mg/dL Urine Ketones (NEGATIVE) mg/dL Urine Occult Blood (NEGATIVE) Urine Nitrite (NEGATIVE) Urine Bilirubin (NEGATIVE) Urine Urobilinogen (NEGATIVE) mg/dL Ur Leukocyte Esterase (NEGATIVE) Urine RBC (0) Urine WBC (0) Ur Squamous Epith Cells (NS,R,O) Amorphous Sediment Urine Bacteria (NS) Blood Type Gel Antibody Screen Result Diagrams: 01/10/18 06:15 01/10/18 08:45 Otoniel Results Last 24 hrs: Microbiology 01/10/18 06:25 Anaerobic Blood Culture - Final Blood - Venous - Lab Draw 01/10/18 06:15 Anaerobic Blood Culture - Final Blood - Venous - Problem List (1) Sepsis SNOMED Code(s): 50934872 ICD Code: A41.9 - SEPSIS, UNSPECIFIED ORGANISM Status: Acute Current Visit: Yes Problem Details: Unclear etiology. Patient currently on vancomycin , Rocephin, Flagyl. Continue broad-spectrum coverage for both joint infection and possible colitis. Consult Dr. Esquivel from general surgery. Blood cultures are pending. Urine culture pending. He is admitted to ICU. Has received almost 3 L of normal saline and will continue this at a reduced rate of 100 mL per hour until lab indices are improved. Recheck labs at 3 PM today. (2) BERTHA (acute kidney injury) SNOMED Code(s): 59032229 ICD Code: N17.9 - ACUTE KIDNEY FAILURE, UNSPECIFIED Status: Acute Current Visit: Yes Problem Details: Patient is making urine and creatinine has already come down with IV fluids. Etiology is unclear. It sounds like before yesterday evening the patient was making urine. He had 100 mL out when they placed the catheter which makes retention unlikely. Possibly his severe obstipation is contributing but very difficult to interpret this acute onset unless it's infectious. This would place the patient in a category of severe sepsis with renal dysfunction and hypotension actually qualifying as septic shock. We'll avoid renal toxic meds, continue IV fluids, recheck labs at 3 PM today. (3) Cellulitis of right ankle SNOMED Code(s): 32496399 ICD Code: L03.115 - CELLULITIS OF RIGHT LOWER LIMB Status: Acute Current Visit: Yes Problem Details: Possible etiology of septic shock. Continue vancomycin for MRSA coverage and Rocephin and Flagyl should give good coverage for gram-positive gram negatives and anaerobes. (4) Colitis SNOMED Code(s): 71109534 ICD Code: K52.9 - NONINFECTIVE GASTROENTERITIS AND COLITIS, UNSPECIFIED Status: Acute Current Visit: Yes Problem Details: CT read of possible ischemic type colitis caused by stool called stercoral colitis. Patient's abdomen appears benign and pain seems to be more related to suprapubic discomfort than true colitis. General surgery to see the patient and if he feels it would be safe we could start a bowel cleansing regimen to see if we can resolve his obstipation. (5) Obstipation SNOMED Code(s): 501987661 ICD Code: K59.00 - CONSTIPATION, UNSPECIFIED Status: Acute Current Visit : Yes Problem Details: Narcotic induced most likely etiology. See above. (6) DVT prophylaxis SNOMED Code(s): 288860043, 187662404 ICD Code: HNK3189 - Status: Acute Current Visit: Yes Problem Details: Heparin due to renal function if Gen. surgery agrees. Problem List Initiated/Reviewed/Updated: Yes Orders Last 24hrs: Active Orders 24 hr Category Date Time Status Admission Status [Patient Status] [ADT] Routine ADT 01/10/18 09:00 Active Cardiac Monitoring [RC] CONTINUOUS Care 01/10/18 11:21 Active EKG Documentation Completion [RC] ASDIRECTED Care 01/10/18 05:49 Active Nino Catheter Insertion [Insert Urinary Catheter] [OM. Care 01/10/18 06:00 Ordered PC] Q24H Height and Weight [RC] DAILY Care 01/10/18 11:19 Active Intake and Output [RC] QSHIFT Care 01/10/18 11:21 Active Notify Provider Consults [RC] ASDIRECTED Care 01/10/18 11:26 Active Notify Provider Vital Signs [RC] ASDIRECTED Care 01/10/18 11:21 Active Oxygen Therapy [RC] PRN Care 01/10/18 11:19 Active Up With Assistance [RC] ASDIRECTED Care 01/10/18 11:19 Active Urinary Catheter Assessment [RC] QSHIFT Care 01/10/18 05:50 Active VTE/DVT Education [RC] Per Unit Routine Care 01/10/18 11:19 Active Vital Signs [RC] Q4H Care 01/10/18 11:19 Active Consult to Physician [CONS] Routine Cons 01/10/18 11:19 Ordered Nothing per Oral Now Diet [DIET] Diet 01/10/18 Breakfast Active Abdomen Pelvis wo Cont [CT] Stat Exams 01/10/18 07:13 Taken CBC WITH AUTO DIFF [HEME] AM Lab 01/11/18 05:11 Ordered CBC WITH AUTO DIFF [HEME] Routine Lab 01/10/18 11:19 Ordered COMPREHENSIVE METABOLIC PN,CMP [CHEM] AM Lab 01/11/18 05:11 Ordered COMPREHENSIVE METABOLIC PN,CMP [CHEM] Routine Lab 01/10/18 11:19 Ordered CULTURE BLOOD [BC] Stat Lab 01/10/18 06:15 Results CULTURE BLOOD [BC] Stat Lab 01/10/18 06:25 Results CULTURE URINE [RM] Stat Lab 01/10/18 06:10 Received INR,PT,PROTHROMBIN TIME [COAG] Routine Lab 01/10/18 11:19 Ordered LACTIC ACID [CHEM] Stat Lab 01/10/18 08:05 Ordered MAGNESIUM [CHEM] Routine Lab 01/10/18 11:19 Ordered PHOSPHORUS [CHEM] Routine Lab 01/10/18 11:19 Ordered UA W/MICROSCOPIC [URIN] Stat Lab 01/10/18 06:10 Ordered Acetaminophen [Tylenol] Med 01/10/18 11:19 Active 650 mg PO Q4H PRN Acetaminophen [Tylenol] Med 01/10/18 11:19 Active 650 mg RECTAL Q4H PRN Carboxymethylcellulos/Glycerin [Refresh Optive] Med 01/10/18 11:16 Active 0 ml EYEBOTH ASDIRECTED PRN Gabapentin [Neurontin] Med 01/10/18 14:00 Active 300 mg PO TID HYDROmorphone [Dilaudid] Med 01/10/18 11:19 Active 0.5 mg IVPUSH Q2H PRN Heparin Sodium Med 01/10/18 12:00 Active 5,000 units SUBCUT Q12H Levothyroxine Med 01/11/18 06:00 Active 25 mcg PO 0600 Ondansetron [Zofran ODT] Med 01/10/18 11:19 Active 4 mg PO Q4H PRN Pantoprazole [ProTONIX IV] Med 01/10/18 11:30 Active 40 mg IVPUSH Q24H Sodium Chloride 0.9% [Normal Saline] 1,000 ml Med 01/10/18 12:30 Active IV ASDIRECTED Sodium Chloride 0.9% [Saline Flush] Med 01/10/18 05:57 Active 10 ml FLUSH ASDIRECTED PRN Sodium Chloride 0.9% [Saline Flush] Med 01/10/18 05:59 Active 10 ml FLUSH ASDIRECTED PRN rOPINIRole [Requip] Med 01/10/18 21:00 Active 0.5 mg PO BEDTIME Blood Culture x2 Reflex Set [OM.PC] Urgent Oth 01/10/18 05:49 Ordered Saline Lock Insert [OM.PC] Routine Oth 01/10/18 05:57 Ordered Saline Lock Insert [OM.PC] Routine Oth 01/10/18 05:59 Ordered Sequential Compression Device [OM.PC] Per Unit Routine Oth 01/10/18 11:21 Ordered Resuscitation Status Routine Resus Stat 01/10/18 11:19 Ordered EKG 12 Lead [EK] Stat Ther 01/10/18 05:48 Ordered Medication Orders Acetaminophen (Tylenol) 650 mg RECTAL Q4H PRN PRN Reason: Mild pain/fever Acetaminophen (Tylenol) 650 mg PO Q4H PRN PRN Reason: Pain (Mild 1-3)/fever Carboxymethylcellulose (Refresh Optive) 0 ml EYEBOTH ASDIRECTED PRN PRN Reason: Dry Eyes Gabapentin (Neurontin) 300 mg PO TID [facility] Heparin Sodium (Porcine) (Heparin Sodium) 5,000 units SUBCUT Q12H AMEENA Hydromorphone HCl (Dilaudid) 0.5 mg IVPUSH Q2H PRN PRN Reason: Pain (severe 7-10) Sodium Chloride (Normal Saline) 1,000 mls @ 150 mls/hr IV ASDIRECTED [facility] Levothyroxine Sodium (Levothyroxine) 25 mcg PO 0600 [facility] Ondansetron HCl (Zofran Odt) 4 mg PO Q4H PRN PRN Reason: nausea, able to take PO Pantoprazole Sodium (Protonix Iv) 40 mg IVPUSH Q24H [facility] Last Admin: 01/10/18 12:02 Dose: 40 mg Ropinirole HCl (Requip) 0.5 mg PO BEDTIME [facility] Sodium Chloride (Saline Flush) 10 ml FLUSH ASDIRECTED PRN PRN Reason: Keep Vein Open Last Admin: 01/10/18 05:40 Dose: 10 ml Sodium Chloride (Saline Flush) 10 ml FLUSH ASDIRECTED PRN PRN Reason: Keep Vein Open Last Admin: 01/10/18 10:05 Dose: 10 ml Admin: 01/10/18 06:00 Dose: 10 ml Assessment/Plan Comment:: CODE STATUS discussed with the patient and his and the patient is full code. He wants full care is up to the point of and full resuscitation if his heart were to stop beating or he were to stop breathing.
[2018-01-10] MEDS ORDERED: Magnesium Citrate Solution 296 ML Bottle PO ONE (12:40)
[2018-01-10] MEDS: Sodium Chloride 0.9% 1,000 ML IV SCH ×2 (12:45→19:04)
--- NOTE | 2018-01-10 13:19 | CONS ---
DATE OF CONSULTATION: 01/10/2018 HISTORY: This is a 67-year-old gentleman who is seen in consultation in the hospital for evaluation of abdominal pain and constipation. Recently, he had a fractured ankle and underwent a surgery with a postoperative infection. He has been on OxyContin and developed severe constipation and was brought to the emergency room. At that time, it was noted that he also had an elevated creatinine and elevated WBC. CAT scan questions possibility of ischemic colitis. Lactic acid is elevated at 5.3. WBC is elevated at 20,500. The patient has been admitted and started on IV fluids and IV antibiotics. Currently, he is feeling better. A suppository was given and digital disimpaction did remove some stool. A Nino catheter has been placed and the patient seems to be feeling better. He denies any pain at this time. Vital signs improved and he has a good pulse and blood pressure. In talking to the patient and his , she did try Dulcolax, MiraLAX, and a suppository last evening without any success. I reviewed his clinic records and he did have a colonoscopy in July of 2016 and was found to have diverticulosis, but no other significant abnormalities. MEDICATIONS: Reviewed. MEDICAL ALLERGIES: Reviewed. PHYSICAL EXAMINATION: GENERAL: Reveals a pleasant gentleman, in no acute distress. He is resting comfortably in bed. VITALS: Vitals are noted. ABDOMEN: Completely soft. There is no distention. He does complain of some mild tenderness in the lower abdomen. No hernias are palpable. ASSESSMENT: Constipation secondary to narcotics. PLAN: The patient will be given magnesium citrate to drink to see if this will help stimulate bowel movements. Narcotics will be avoided. No surgical indication is present at this time. WBC and lactic acid will be followed. /[id number] MARLON/BAKARI
[2018-01-10] MEDS ORDERED: Gabapentin 300 MG Cap PO SCH (14:00)
[2018-01-10] MEDS: Gabapentin 300 MG Cap PO SCH ×2 (14:58→21:50)
[2018-01-10] MEDS: Heparin Sodium 5,000 Units/ML Vial SUBCUT SCH ×2 (14:58→23:59)
[2018-01-10] MEDS: rOPINIRole 0.5 MG Tab PO SCH (21:50)
[2018-01-11] MEDS: Sodium Chloride 0.9% 1,000 ML IV SCH ×2 (01:23→08:22)
[2018-01-11] MEDS: Levothyroxine 25 MCG Tab PO SCH (06:40)
[2018-01-11] MEDS: Gabapentin 300 MG Cap PO SCH ×3 (09:59→20:44)
[2018-01-11] MEDS: Acetaminophen 325 MG Tab PO PRN ×2 (10:25→16:34)
--- NOTE | 2018-01-11 10:27 | PCM.CONS ---
H&P History of Present Illness - General Date of Service: 01/11/18 Admit Problem/Dx: Admission Diagnosis/Problem Admission Diagnosis/Problem Acute kidney injury Source of Information: Patient, Provider History Limitations: Reports: No Limitations - History of Present Illness Onset of Symptoms: Reports: Sudden Duration of Symptoms: Reports: Day(s): Location: Reports: Abdomen, Lower Extremity, Right Quality: Reports: Ache Severity: Mild Improves with: Reports: Immobilization Worsens with: Reports: Movement Associated Symptoms: Reports: Malaise Lower Abdominal Pain Score (Numeric/FACES): 2 - Related Data Allergies/Adverse Reactions: Allergies Allergy/AdvReac Type Severity Reaction Status Date / Time codeine Allergy Difficulty Verified 01/10/18 06:28 Breathing venlafaxine [From Effexor] Allergy Tachycardia Verified 01/10/18 06:28 egg white Allergy Diarrhea Uncoded 11/30/17 08:17 Home Medications: Home Meds Calcium Carb/Vitamin D3/Soyb [V-R Soy Formula Caplet] 1 ea PO BID 11/29/17 [ History] Cupric Sulfate Pentahydrate [Cupric Sulfate] 6 tab PO DAILY 11/29/17 [History] Cyanocobalamin (Vitamin B-12) [B-12] 1,000 mcg PO DAILY 11/29/17 [History] Dicyclomine [Bentyl] 10 mg PO ASDIRECTED PRN 11/29/17 [History] Ferrous Sulfate [Ferosul] 325 mg PO DAILY 11/29/17 [History] Finasteride [Proscar] 5 mg PO BEDTIME 11/29/17 [History] Furosemide 40 mg PO DAILY PRN 11/29/17 [History] Gabapentin [Neurontin] 900 mg PO TID 11/29/17 [History] Gluc 2KCl/Chondr/Jeri Hy/Hy Ac [Glucosamine & Chondroitin Cap] 1 ea PO BID 11/29 [History] Lactobacillus Acidophilus [Acidophilus] 2 ea PO DAILY 11/29/17 [History] Levothyroxine 25 mcg PO DAILY 11/29/17 [History] Lisinopril 20 mg PO DAILY 11/29/17 [History] Multivitamin with Minerals [Multiple Vitamin] 1 ea PO DAILY 11/29/17 [History] Omeprazole 20 mg PO ACBREAKFAST 11/29/17 [History] Potassium Chloride 10 meq PO BIDMEALS 11/29/17 [History] Primidone [Mysoline] 50 mg PO BEDTIME 11/29/17 [History] Simvastatin [Zocor] 40 mg PO BEDTIME 11/29/17 [History] Terazosin [Hytrin] 5 mg PO BEDTIME 11/29/17 [History] Vit C/Clara Ac/Lut/Copper/ZnOx [Preservision Lutein Softgel] 1 ea PO DAILY [History] rOPINIRole [Requip] 0.5 mg PO BEDTIME 11/29/17 [History] Carboxymethylcellulos/Glycerin [Lubricant 0.5-0.9% Eye Drops] 1 drop EYEBOTH ASDIRECTED PRN 01/10/18 [History] Cholecalciferol (Vitamin D3) [Vitamin D3] 2,000 unit PO DAILY 01/10/18 [History] Sulfamethoxazole/Trimethoprim [Septra DS] 1 tab PO BID 01/10/18 [History] Past Medical History HEENT History: Reports: Cataract, Impaired Vision, Macular Degeneration, Other ( See Below) Other HEENT History: macular scar of the right eye. NUCLEAR SCLEROSIS BILATERAL ,. SEASONAL ALLERGIES Cardiovascular History: Reports: Arrhythmia, High Cholesterol, Hypertension Respiratory History: Reports: Other (See Below) Other Respiratory History: seasonal allergies Gastrointestinal History: Reports: Chronic Constipation, GERD, PUD Other Gastrointestinal History: constipation after surgery Genitourinary History: Reports: Other (See Below) Other Genitourinary History: benign prostatic hyperplasia without urinary tract symptoms. Musculoskeletal History: Reports: Arthritis, Fracture, Other (See Below) Other Musculoskeletal History: chronic fatigue syndrome, idiopathic peripheral neuropathy, fx R ankle with ORIF 11/30/17 Neurological History: Reports: Neuropathy, Peripheral, Other (See Below) Other Neuro History: MYOPATHY Psychiatric History: Reports: None Endocrine/Metabolic History: Reports: Hypothyroidism, Vitamin D Deficiency Hematologic History: Reports: Anemia, Blood Transfusion(s) Immunologic History: Reports: None Oncologic (Cancer) History: Reports: None Dermatologic History: Reports: Other (See Below) - Infectious Disease History Infectious Disease History: Reports: Chicken Pox, Measles, Shingles - Past Surgical History Head Surgeries/Procedures: Reports: None HEENT Surgical History: Reports: Naso-Sinus Surgery, Oral Surgery, Tonsillectomy Other Cardiovascular Surgeries/Procedures: CARDIAC CATHETERIZATION 2008,2009 Respiratory Surgical History: Reports: None GI Surgical History: Reports: Appendectomy, Cholecystectomy, Colonoscopy, EGD, Hernia Repair/Other, Other (See Below) Other GI Surgeries/Procedures: partial gastrectomy and vagotomy 1993, revision 2009 Male Surgical History: Reports: Vasectomy Endocrine Surgical History: Reports: None Neurological Surgical History: Reports: None Musculoskeletal Surgical History: Reports: ORIF, Other (See Below) Other Musculoskeletal Surgeries/Procedures:: CYST REMOVED FROM RIGHT KNEE, R ankle surgery Oncologic Surgical History: Reports: None Social & Family History - Family History Family Medical History: Noncontributory - Tobacco Use Smoking Status *Q: Never Smoker - Caffeine Use Caffeine Use: Reports: Soda - Recreational Drug Use Recreational Drug Use: No H&P Review of Systems - Review of Systems: Review Of Systems: See Below General: Reports: No Symptoms HEENT: Reports: No Symptoms Pulmonary: Reports: No Symptoms Cardiovascular: Reports: No Symptoms Gastrointestinal: Reports: Abdominal Pain Genitourinary: Reports: No Symptoms Musculoskeletal: Reports: Joint Pain Skin: Reports: No Symptoms Psychiatric: Reports: No Symptoms Neurological: Reports: No Symptoms Hematologic/Lymphatic: Reports: No Symptoms Immunologic: Reports: No Symptoms Exam - Exam Exam: See Below - Vital Signs Vital Signs: Last Vital Signs Temp 97.8 F 01/11/18 07:40 Pulse 82 01/11/18 06:00 Resp 20 01/11/18 07:40 BP 131/79 01/11/18 07:40 Pulse Ox 96 01/11/18 07:40 Weight: 180 lb - Exam General: Alert, Oriented HEENT: Hearing Intact, Mucosa Moist & [place], Pupils Equal, Pupils Reactive Neck: Supple, Trachea Midline Lungs: Normal Respiratory Effort Extremities: Non-Tender, Limited Range of Motion Skin: Warm, Dry, Wound Neuro Extensive - Mental Status: Alert, Oriented x3, Normal Mood/Affect, Normal Cognition, Memory Intact Psychiatric: Alert, Normal Affect, Normal Mood - Patient Data Lab Results Last 24 hrs: Laboratory Results - last 24 hr 01/10/18 01/10/18 01/10/18 Range/Units 15:15 15:15 15:15 WBC 17.0 H (4.5-12.0) X10-3/uL RBC 4.79 (4.30-5.75) x10(6)uL Hgb 14.8 (11.5-15.5) g/dL Hct 43.1 (30.0-51.3) % MCV 90.0 (80-96) fL MCH 31.0 (27.7-33.6) pg MCHC 34.4 (32.2-35.4) g/dL RDW 12.6 (11.5-15.5) % Plt Count 290 (125-369) X10(3)uL MPV 8.4 (7.4-10.4) fL Neut % (Auto) (46-82) % Lymph % (Auto) (13-37) % [place] % (Auto) (4-12) % Eos % (Auto) (1.0-5.0) % Baso % (Auto) (0-2) % Neut # (Auto) (1.6-8.3) # Lymph # (Auto) (0.6-5.0) # [place] # (Auto) (0.0-1.3) # Eos # (Auto) (0.0-0.8) # Baso # (Auto) (0.0-0.2) # Add Manual Diff Yes Neutrophils % (Manual) 80 (46-82) % Band Neutrophils % 3 (0-6) % Lymphocytes % (Manual) 7 L (13-37) % Monocytes % (Manual) 10 (4-12) % PT 10.8 (8.7-11.1) INR 1.11 (0.89-1.13) Sodium (135-145) mmol/L Potassium (3.5-5.3) mmol/L Chloride (100-110) mmol/L Carbon Dioxide (21-32) mmol/L BUN (7-18) mg/dL Creatinine (0.70-1.30) mg/dL Est Cr Clr Drug Dosing mL/min Estimated GFR (MDRD) (>60) BUN/Creatinine Ratio (9-20) Glucose (80-116) mg/dL Lactic Acid 2.4 H (0.4-2.2) mmol/L Calcium (8.6-10.2) mg/dL Phosphorus (2.6-4.6) mg/dL Magnesium (1.8-2.5) mg/dL Total Bilirubin (0.1-1.3) mg/dL AST (5-25) IU/L ALT (12-36) U/L Alkaline Phosphatase (56-112) IU/L Total Protein (6.0-8.0) g/dL Albumin (3.2-4.6) g/dL Globulin g/dL Albumin/Globulin Ratio 01/10/18 01/11/18 01/11/18 Range/Units 15:15 07:15 07:15 WBC 10.9 (4.5-12.0) X10-3/uL RBC 4.04 L (4.30-5.75) x10(6)uL Hgb 12.5 (11.5-15.5) g/dL Hct 36.5 (30.0-51.3) % MCV 90.3 (80-96) fL MCH 31.0 (27.7-33.6) pg MCHC 34.4 (32.2-35.4) g/dL RDW 12.9 (11.5-15.5) % Plt Count 247 (125-369) X10(3)uL MPV 8.4 (7.4-10.4) fL Neut % (Auto) 84.4 H (46-82) % Lymph % (Auto) 8.5 L (13-37) % [place] % (Auto) 6.1 (4-12) % Eos % (Auto) 1 (1.0-5.0) % Baso % (Auto) 1 (0-2) % Neut # (Auto) 9.1 H (1.6-8.3) # Lymph # (Auto) 0.9 (0.6-5.0) # [place] # (Auto) 0.7 (0.0-1.3) # Eos # (Auto) 0.1 (0.0-0.8) # Baso # (Auto) 0.1 (0.0-0.2) # Add Manual Diff Neutrophils % (Manual) (46-82) % Band Neutrophils % (0-6) % Lymphocytes % (Manual) (13-37) % Monocytes % (Manual) (4-12) % PT (8.7-11.1) INR (0.89-1.13) Sodium 136 137 (135-145) mmol/L Potassium 4.4 4.1 (3.5-5.3) mmol/L Chloride 102 105 (100-110) mmol/L Carbon Dioxide 25 24 (21-32) mmol/L BUN 24 H 15 (7-18) mg/dL Creatinine 1.9 H 1.0 (0.70-1.30) mg/dL Est Cr Clr Drug Dosing 39.49 75.03 mL/min Estimated GFR (MDRD) 36 L > 60 (>60) BUN/Creatinine Ratio 12.6 15.0 (9-20) Glucose 121 H 96 (80-116) mg/dL Lactic Acid (0.4-2.2) mmol/L Calcium 9.0 8.2 L (8.6-10.2) mg/dL Phosphorus 4.0 (2.6-4.6) mg/dL Magnesium 1.5 L (1.8-2.5) mg/dL Total Bilirubin 0.3 0.3 (0.1-1.3) mg/dL AST 15 D 16 (5-25) IU/L ALT 14 12 D (12-36) U/L Alkaline Phosphatase 69 57 (56-112) IU/L Total Protein 6.4 5.4 L (6.0-8.0) g/dL Albumin 2.9 L 2.4 L (3.2-4.6) g/dL Globulin 3.5 3.0 g/dL Albumin/Globulin Ratio 0.8 0.8 07/18/18 Range/Units 07:15 WBC (4.5-12.0) X10-3/uL RBC (4.30-5.75) x10(6)uL Hgb (11.5-15.5) g/dL Hct (30.0-51.3) % MCV (80-96) fL MCH (27.7-33.6) pg MCHC (32.2-35.4) g/dL RDW (11.5-15.5) % Plt Count (125-369) X10(3)uL MPV (7.4-10.4) fL Neut % (Auto) (46-82) % Lymph % (Auto) (13-37) % [place] % (Auto) (4-12) % Eos % (Auto) (1.0-5.0) % Baso % (Auto) (0-2) % Neut # (Auto) (1.6-8.3) # Lymph # (Auto) (0.6-5.0) # [place] # (Auto) (0.0-1.3) # Eos # (Auto) (0.0-0.8) # Baso # (Auto) (0.0-0.2) # Add Manual Diff Neutrophils % (Manual) (46-82) % Band Neutrophils % (0-6) % Lymphocytes % (Manual) (13-37) % Monocytes % (Manual) (4-12) % PT (8.7-11.1) INR (0.89-1.13) Sodium (135-145) mmol/L Potassium (3.5-5.3) mmol/L Chloride (100-110) mmol/L Carbon Dioxide (21-32) mmol/L BUN (7-18) mg/dL Creatinine (0.70-1.30) mg/dL Est Cr Clr Drug Dosing mL/min Estimated GFR (MDRD) (>60) BUN/Creatinine Ratio (9-20) Glucose (80-116) mg/dL Lactic Acid 0.7 (0.4-2.2) mmol/L Calcium (8.6-10.2) mg/dL Phosphorus (2.6-4.6) mg/dL Magnesium (1.8-2.5) mg/dL Total Bilirubin (0.1-1.3) mg/dL AST (5-25) IU/L ALT (12-36) U/L Alkaline Phosphatase (56-112) IU/L Total Protein (6.0-8.0) g/dL Albumin (3.2-4.6) g/dL Globulin g/dL Albumin/Globulin Ratio Result Diagrams: 01/11/18 07:15 01/11/18 07:15 Otoniel Results Last 24 hrs: Microbiology 01/10/18 06:15 Aerobic Blood Culture - Preliminary Blood - Venous NO GROWTH AFTER 1 DAY Anaerobic Blood Culture - Final 01/10/18 06:25 Aerobic Blood Culture - Preliminary Blood - Venous - Lab Draw NO GROWTH AFTER 1 DAY Anaerobic Blood Culture - Final 01/10/18 06:10 Urine Culture - Preliminary Urine, Catheterized NO GROWTH AFTER 1 DAY Consult PN Assessment/Plan POD#: other Procedures: Procedures ANESTH LOWER LEG BONE SURG (11/30/17) CT ABD & PELV W/CONTRAST (08/21/14) ELECTRICAL STIMULATION (03/17/16) EMERGENCY DEPT VISIT (11/26/17) FLUOROSCOPY <1 HR PHYS/QHP (11/30/17) INTMD RPR N-HF/GENIT2.6-7.5 (11/26/17) MANUAL THERAPY 1/> REGIONS (04/27/16) MRI LUMBAR SPINE W/O DYE (03/10/16) PT EVALUATION (03/17/16) THER/PROPH/DIAG INJ SC/IM (11/26/17) THERAPEUTIC EXERCISES (04/07/16) TREATMENT OF ANKLE FRACTURE (11/30/17) TREATMENT OF ANKLE FRACTURE (11/26/17) ULTRASOUND THERAPY (03/17/16) X-RAY EXAM OF ANKLE (01/06/18) (1) Cellulitis of right ankle SNOMED Code(s): 22707043 Code(s): L03.115 - CELLULITIS OF RIGHT LOWER LIMB Current Visit: Yes Comment: Possible etiology of septic shock. Continue vancomycin for MRSA coverage and Rocephin and Flagyl should give good coverage for gram-positive gram negatives and anaerobes. Problem List Initiated/Reviewed/Updated: Yes Plan: I had the pleasure speaking with the patient today in his hospital room at [place]. He was admitted yesterday due to possible sepsis. He's been placed on IV antibiotics. Unfortunately, his mother and he needs to be refill on Tuesday. He feels much better today. Physical examination: Physical examination of the right ankle shows significantly increased skin condition. No cellulitis is present. No erythema is present. The small proximal wound on the lateral malleolus has healed significantly since his visit last Tuesday. No drainage is present. Distal motor and sensory examination is grossly intact. Imagin views of the right ankle reviewed incorporated into the decision- making process. This shows imaged to be unchanged from last Tuesday. No increased areas of lucency are present. The plate and screw construct on the lateral malleolus is still in good position. The medial malleolar screws are unchanged. Plan: I am in agreement with the hospitalist plan to send him home on oral antibiotics. I do not believe that an MRI of the right ankle to rule out osteomyelitis is warranted at this time. I will see him at his regular scheduled appointment.
[2018-01-11] MEDS: Heparin Sodium 5,000 Units/ML Vial SUBCUT SCH (11:23)
[2018-01-11] MEDS: Pantoprazole 40 MG Vial IVPUSH SCH (11:24)
--- NOTE | 2018-01-11 11:26 | CR ---
INDICATION: Abdominal pain. ABDOMEN: Five images of the abdomen were obtained with supine and decubitus projections and compared with CT of 01/10/2018. There are some air fluid levels with somewhat distended colon present. Stool in the area of the rectum on the previous CT has been evacuated - a definite impaction is not seen at this time. Findings may be on the basis of relatively hypotonicity of the bowel but should be correlated clinically. No other organomegaly or mass lesions were suggested. Evidence of previous surgery is noted in the epigastrium. No free air was noted intraperitoneally. IMPRESSION: Evacuation of previous moderately large amount of stool in the rectosigmoid and rectum with continued mild distention of the bowel with some air fluid levels. Findings may be on the basis of paralytic ileus or hypotonicity of the bowel but should be correlated clinically. Small bowel series may be helpful for further evaluation, depending upon clinical correlation. MTDD
--- NOTE | 2018-01-11 11:29 | CR ---
INDICATION: Status post fracture. RIGHT ANKLE: Three views of the right ankle were obtained 01/11/2018 and compared with 01/06/2018, again revealing post ORIF changes with a plate and multiple screws fixing fibular fracture fragments as previously, in good position and alignment, and also medial malleolar fracture fragments fixed in place with very minimal angulation, utilizing two screws. No change in position or alignment of the fracture fragments was seen. The ankle mortise remains slightly more prominent on the medial aspect. This appearance is unchanged. IMPRESSION: Stable post ORIF right ankle. LULU
--- NOTE | 2018-01-11 12:18 | PCM.SN ---
- Free Text/Narrative Note: Patient feels better, many loose stools Tolerating liquid diet Afeb, vitals good Abd soft, nontender A) Doing much better, no surgical abdomen P) Adv diet as tolerated; will see again if asked.
[2018-01-11] MEDS ORDERED: metroNIDAZOLE/Normal Saline 500 MG in Premix Bag 1 BAG IV SCH (13:00)
--- NOTE | 2018-01-11 13:01 | PCM.PN ---
- General Info Date of Service: 01/11/18 Subjective Update: Patient is a 67-year-old male admitted for sepsis with shock and acute kidney injury currently on hospital day #2. Patient responded remarkably well to IV fluids. His blood pressure improved very dramatically and he has been afebrile and hemodynamically stable since yesterday afternoon. Unfortunately he had been given vancomycin, Rocephin, and Flagyl in the emergency department and I failed to see these were one time orders so did not reorder the antibiotics. Pharmacy caught this error and the patient did miss 2 doses of Flagyl. I think it still unclear the etiology of the patient's acute kidney injury other than septic shock or what his source of infection was. The ankle has improved dramatically with no erythema, no warmth. Evaluated this morning by Dr. Bertrand and he felt there was no indication for aspiration or MRI as it clearly is not a septic joint in his opinion. Dr. Esquivel from general surgery evaluated the patient and felt this is constipation without colitis. He recommended no further evaluation of this. Please see their notes for further details. This morning the patient notes he's had multiple loose stools all night. Passed a large amount of bowel movements over the last 24 hours and abdominal pain has resolved. He's had no chest pain, no shortness of breath, no nausea or vomiting. Has been tolerating clear liquids. Functional Status: Reports: Pain Controlled, Tolerating Diet - Patient Data Vitals - Most Recent: Last Vital Signs Temp 36.6 C 01/11/18 07:40 Pulse 82 01/11/18 06:00 Resp 20 01/11/18 07:40 BP 131/79 01/11/18 07:40 Pulse Ox 96 01/11/18 07:40 Weight - Most Recent: 81.647 kg I&O - Last 24 Hours: Intake & Output 01/10/18 01/11/18 01/11/18 22:59 06:59 14:59 Intake Total 1312 1050 Output Total 625 525 Balance 687 525 Lab Results Last 24 Hours: Laboratory Results - last 24 hr 01/10/18 01/10/18 01/10/18 Range/Units 15:15 15:15 15:15 WBC 17.0 H (4.5-12.0) X10-3/uL RBC 4.79 (4.30-5.75) x10(6)uL Hgb 14.8 (11.5-15.5) g/dL Hct 43.1 (30.0-51.3) % MCV 90.0 (80-96) fL MCH 31.0 (27.7-33.6) pg MCHC 34.4 (32.2-35.4) g/dL RDW 12.6 (11.5-15.5) % Plt Count 290 (125-369) X10(3)uL MPV 8.4 (7.4-10.4) fL Neut % (Auto) (46-82) % Lymph % (Auto) (13-37) % [place] % (Auto) (4-12) % Eos % (Auto) (1.0-5.0) % Baso % (Auto) (0-2) % Neut # (Auto) (1.6-8.3) # Lymph # (Auto) (0.6-5.0) # [place] # (Auto) (0.0-1.3) # Eos # (Auto) (0.0-0.8) # Baso # (Auto) (0.0-0.2) # Add Manual Diff Yes Neutrophils % (Manual) 80 (46-82) % Band Neutrophils % 3 (0-6) % Lymphocytes % (Manual) 7 L (13-37) % Monocytes % (Manual) 10 (4-12) % PT 10.8 (8.7-11.1) INR 1.11 (0.89-1.13) Sodium (135-145) mmol/L Potassium (3.5-5.3) mmol/L Chloride (100-110) mmol/L Carbon Dioxide (21-32) mmol/L BUN (7-18) mg/dL Creatinine (0.70-1.30) mg/dL Est Cr Clr Drug Dosing mL/min Estimated GFR (MDRD) (>60) BUN/Creatinine Ratio (9-20) Glucose (80-116) mg/dL Lactic Acid 2.4 H (0.4-2.2) mmol/L Calcium (8.6-10.2) mg/dL Phosphorus (2.6-4.6) mg/dL Magnesium (1.8-2.5) mg/dL Total Bilirubin (0.1-1.3) mg/dL AST (5-25) IU/L ALT (12-36) U/L Alkaline Phosphatase (56-112) IU/L Total Protein (6.0-8.0) g/dL Albumin (3.2-4.6) g/dL Globulin g/dL Albumin/Globulin Ratio 01/10/18 01/11/18 01/11/18 Range/Units 15:15 07:15 07:15 WBC 10.9 (4.5-12.0) X10-3/uL RBC 4.04 L (4.30-5.75) x10(6)uL Hgb 12.5 (11.5-15.5) g/dL Hct 36.5 (30.0-51.3) % MCV 90.3 (80-96) fL MCH 31.0 (27.7-33.6) pg MCHC 34.4 (32.2-35.4) g/dL RDW 12.9 (11.5-15.5) % Plt Count 247 (125-369) X10(3)uL MPV 8.4 (7.4-10.4) fL Neut % (Auto) 84.4 H (46-82) % Lymph % (Auto) 8.5 L (13-37) % [place] % (Auto) 6.1 (4-12) % Eos % (Auto) 1 (1.0-5.0) % Baso % (Auto) 1 (0-2) % Neut # (Auto) 9.1 H (1.6-8.3) # Lymph # (Auto) 0.9 (0.6-5.0) # [place] # (Auto) 0.7 (0.0-1.3) # Eos # (Auto) 0.1 (0.0-0.8) # Baso # (Auto) 0.1 (0.0-0.2) # Add Manual Diff Neutrophils % (Manual) (46-82) % Band Neutrophils % (0-6) % Lymphocytes % (Manual) (13-37) % Monocytes % (Manual) (4-12) % PT (8.7-11.1) INR (0.89-1.13) Sodium 136 137 (135-145) mmol/L Potassium 4.4 4.1 (3.5-5.3) mmol/L Chloride 102 105 (100-110) mmol/L Carbon Dioxide 25 24 (21-32) mmol/L BUN 24 H 15 (7-18) mg/dL Creatinine 1.9 H 1.0 (0.70-1.30) mg/dL Est Cr Clr Drug Dosing 39.49 75.03 mL/min Estimated GFR (MDRD) 36 L > 60 (>60) BUN/Creatinine Ratio 12.6 15.0 (9-20) Glucose 121 H 96 (80-116) mg/dL Lactic Acid (0.4-2.2) mmol/L Calcium 9.0 8.2 L (8.6-10.2) mg/dL Phosphorus 4.0 (2.6-4.6) mg/dL Magnesium 1.5 L (1.8-2.5) mg/dL Total Bilirubin 0.3 0.3 (0.1-1.3) mg/dL AST 15 D 16 (5-25) IU/L ALT 14 12 D (12-36) U/L Alkaline Phosphatase 69 57 (56-112) IU/L Total Protein 6.4 5.4 L (6.0-8.0) g/dL Albumin 2.9 L 2.4 L (3.2-4.6) g/dL Globulin 3.5 3.0 g/dL Albumin/Globulin Ratio 0.8 0.8 07/18/18 Range/Units 07:15 WBC (4.5-12.0) X10-3/uL RBC (4.30-5.75) x10(6)uL Hgb (11.5-15.5) g/dL Hct (30.0-51.3) % MCV (80-96) fL MCH (27.7-33.6) pg MCHC (32.2-35.4) g/dL RDW (11.5-15.5) % Plt Count (125-369) X10(3)uL MPV (7.4-10.4) fL Neut % (Auto) (46-82) % Lymph % (Auto) (13-37) % [place] % (Auto) (4-12) % Eos % (Auto) (1.0-5.0) % Baso % (Auto) (0-2) % Neut # (Auto) (1.6-8.3) # Lymph # (Auto) (0.6-5.0) # [place] # (Auto) (0.0-1.3) # Eos # (Auto) (0.0-0.8) # Baso # (Auto) (0.0-0.2) # Add Manual Diff Neutrophils % (Manual) (46-82) % Band Neutrophils % (0-6) % Lymphocytes % (Manual) (13-37) % Monocytes % (Manual) (4-12) % PT (8.7-11.1) INR (0.89-1.13) Sodium (135-145) mmol/L Potassium (3.5-5.3) mmol/L Chloride (100-110) mmol/L Carbon Dioxide (21-32) mmol/L BUN (7-18) mg/dL Creatinine (0.70-1.30) mg/dL Est Cr Clr Drug Dosing mL/min Estimated GFR (MDRD) (>60) BUN/Creatinine Ratio (9-20) Glucose (80-116) mg/dL Lactic Acid 0.7 (0.4-2.2) mmol/L Calcium (8.6-10.2) mg/dL Phosphorus (2.6-4.6) mg/dL Magnesium (1.8-2.5) mg/dL Total Bilirubin (0.1-1.3) mg/dL AST (5-25) IU/L ALT (12-36) U/L Alkaline Phosphatase (56-112) IU/L Total Protein (6.0-8.0) g/dL Albumin (3.2-4.6) g/dL Globulin g/dL Albumin/Globulin Ratio Otoniel Results Last 24 Hours: Microbiology 01/10/18 06:15 Aerobic Blood Culture - Preliminary Blood - Venous NO GROWTH AFTER 1 DAY Anaerobic Blood Culture - Final 01/10/18 06:25 Aerobic Blood Culture - Preliminary Blood - Venous - Lab Draw NO GROWTH AFTER 1 DAY Anaerobic Blood Culture - Final 01/10/18 06:10 Urine Culture - Preliminary Urine, Catheterized NO GROWTH AFTER 1 DAY Med Orders - Current: Current Medications Acetaminophen (Tylenol) 650 mg RECTAL Q4H PRN PRN Reason: Mild pain/fever Acetaminophen (Tylenol) 650 mg PO Q4H PRN PRN Reason: Pain (Mild 1-3)/fever Last Admin: 01/11/18 10:25 Dose: 650 mg Carboxymethylcellulose (Refresh Optive) 0 ml EYEBOTH ASDIRECTED PRN PRN Reason: Dry Eyes Ceftriaxone Sodium (Rocephin) 2 gm IVPUSH Q24H [facility] Gabapentin (Neurontin) 300 mg PO TID [facility] Last Admin: 01/11/18 09:59 Dose: 300 mg Heparin Sodium (Porcine) (Heparin Sodium) 5,000 units SUBCUT Q12H [facility] Last Admin: 01/11/18 11:23 Dose: 5,000 units Hydromorphone HCl (Dilaudid) 0.5 mg IVPUSH Q2H PRN PRN Reason: Pain (severe 7-10) Sodium Chloride (Normal Saline) 1,000 mls @ 150 mls/hr IV ASDIRECTED [facility] Last Admin: 01/11/18 08:22 Dose: 150 mls/hr Premix 1 bag/ Metronidazole 100 mls @ 100 mls/hr IV Q8H [facility] Vancomycin HCl 750 mg/Vancomycin HCl 500 mg/ Sodium Chloride 250 mls @ 165 mls/ hr IV Q12H [facility] Levothyroxine Sodium (Levothyroxine) 25 mcg PO 0600 [facility] Last Admin: 01/11/18 06:40 Dose: 25 mcg Ondansetron HCl (Zofran Odt) 4 mg PO Q4H PRN PRN Reason: nausea, able to take PO Pantoprazole Sodium (Protonix Iv) 40 mg IVPUSH Q24H [facility] Last Admin: 01/11/18 11:24 Dose: 40 mg Ropinirole HCl (Requip) 0.5 mg PO BEDTIME [facility] Last Admin: 01/10/18 21:50 Dose: 0.5 mg Sodium Chloride (Saline Flush) 10 ml FLUSH ASDIRECTED PRN PRN Reason: Keep Vein Open Last Admin: 01/10/18 05:40 Dose: 10 ml Sodium Chloride (Saline Flush) 10 ml FLUSH ASDIRECTED PRN PRN Reason: Keep Vein Open Last Admin: 01/10/18 10:05 Dose: 10 ml Discontinued Medications Belladonna Alkaloids/Opium (B & O Supprettes No. 15a) 1 supp RECTAL ONETIME ONE Stop: 01/10/18 11:16 Last Admin: 01/10/18 11:34 Dose: 1 supp Ceftriaxone Sodium (Rocephin) Confirm Administered Dose 2 gm .ROUTE .STK-MED ONE Stop: 01/10/18 07:25 Last Admin: 01/10/18 07:28 Dose: Not Given Ceftriaxone Sodium (Rocephin) 2 gm IVPUSH Q24H [facility] Stop: 01/10/18 07:46 Last Admin: 01/10/18 07:55 Dose: 2 gm Gabapentin (Neurontin) 900 mg PO TID [facility] Hydromorphone HCl (Dilaudid) 0.5 mg IVPUSH ONETIME ONE Stop: 01/10/18 07:19 Last Admin: 01/10/18 07:53 Dose: 0.5 mg Sodium Chloride (Normal Saline) 1,000 mls @ 999 mls/hr IV .BOLUS ONE Stop: 01/10/18 06:56 Last Admin: 01/10/18 05:40 Dose: 999 mls/hr Sodium Chloride (Normal Saline) 1,000 mls @ 999 mls/hr IV .BOLUS ONE Stop: 01/10/18 08:03 Last Admin: 01/10/18 07:05 Dose: 999 mls/hr Sodium Chloride (Normal Saline) 500 mls @ 500 mls/hr IV .BOLUS ONE Stop: 01/10/18 08:09 Last Admin: 01/10/18 07:45 Dose: 500 mls/hr Ceftriaxone Sodium 2 gm/ (Sodium Chloride) 100 mls @ 200 mls/hr IVPUSH ONETIME ONE Stop: 01/10/18 07:41 Last Admin: 01/10/18 07:28 Dose: Not Given Ceftriaxone Sodium 2 gm/ (Sodium Chloride) 100 mls @ 200 mls/hr IVPUSH ONETIME ONE Stop: 01/10/18 07:56 Last Admin: 01/10/18 07:55 Dose: Not Given Vancomycin HCl 500 mg/Vancomycin HCl 750 mg/ Sodium Chloride 250 mls @ 200 mls/ hr IV ONETIME ONE Stop: 01/10/18 09:29 Last Admin: 01/10/18 08:09 Dose: 200 mls/hr Metronidazole 500 mg/ Premix 100 mls @ 100 mls/hr IV ONETIME ONE Stop: 01/10/18 09:23 Last Admin: 01/10/18 10:27 Dose: 100 mls/hr Sodium Chloride (Normal Saline) 1,000 mls @ 100 mls/hr IV ASDIRECTED [facility] Magnesium Citrate (Citrate Of Magnesia) 296 ml PO ONETIME ONE Stop: 01/10/18 12:41 Last Admin: 01/10/18 14:57 Dose: 296 ml Ondansetron HCl (Zofran) 4 mg IVPUSH ONETIME ONE Stop: 01/10/18 07:19 Last Admin: 01/10/18 07:50 Dose: 4 mg - Exam General: Alert, Oriented, Cooperative, No Acute Distress HEENT: Pupils Equal, Pupils Reactive Neck: Supple Lungs: Clear to Auscultation, Normal Respiratory Effort Cardiovascular: Regular Rate, Regular Rhythm, No Murmurs GI/Abdominal Exam: Normal Bowel Sounds, Soft, No Distention, Tender (minimally tender around the left lower quadrant, otherwise exam benign and unremarkable.) Back Exam: Normal Inspection Extremities: Normal Inspection, No Pedal Edema (edema, warmth and redness around incision sites are completely gone. ) - Problem List & Annotations (1) Sepsis SNOMED Code(s): 36800282 Code(s): A41.9 - SEPSIS, UNSPECIFIED ORGANISM Status: Acute Current Visit : Yes Annotation/Comment:: Unclear etiology, suspect cellulitis as most likely culprit. (2) BERTHA (acute kidney injury) SNOMED Code(s): 30438049 Code(s): N17.9 - ACUTE KIDNEY FAILURE, UNSPECIFIED Status: Acute Current Visit: Yes Annotation/Comment:: Etiology likely hypovolemia due to severe sepsis/septic shock. Completely resolved. We'll plan to DC Nino catheter in a.m. if patient continues to be stable. (3) Cellulitis of right ankle SNOMED Code(s): 63017479 Code(s): L03.115 - CELLULITIS OF RIGHT LOWER LIMB Status: Acute Current Visit: Yes Annotation/Comment:: Possible etiology of septic shock. Continue vancomycin for MRSA coverage and Rocephin and Flagyl should give good coverage for gram-positive gram negatives and anaerobes. (4) Colitis SNOMED Code(s): 97106138 Code(s): K52.9 - NONINFECTIVE GASTROENTERITIS AND COLITIS, UNSPECIFIED Status: Acute Current Visit: Yes Annotation/Comment:: CT read of possible ischemic type colitis caused by stool called stercoral colitis. Constipation now resolved. Get a flat and upright x-ray tomorrow to make sure that the bowel is moving again. Lat decub view this am showed some air/fluid levels but no stool. (5) Obstipation SNOMED Code(s): 158149219 Code(s): K59.00 - CONSTIPATION, UNSPECIFIED Status: Acute Current Visit: Yes Annotation/Comment:: Narcotic induced most likely etiology. See above. (6) DVT prophylaxis SNOMED Code(s): 138153718, 350027755 Code(s): TUX0400 - Status: Acute Current Visit: Yes Annotation/Comment :: Heparin due to renal function if Gen. surgery agrees. Can change to lovenox tomorrow if labs stable. - Problem List Review Problem List Initiated/Reviewed/Updated: Yes - My Orders Last 24 Hours: My Active Orders 01/10/18 12:00 Heparin Sodium 5,000 units SUBCUT Q12H 01/10/18 12:30 Sodium Chloride 0.9% [Normal Saline] 1,000 ml IV ASDIRECTED 01/10/18 14:00 Gabapentin [Neurontin] 300 mg PO TID 01/10/18 21:00 rOPINIRole [Requip] 0.5 mg PO BEDTIME 01/11/18 06:00 Levothyroxine 25 mcg PO 0600 01/11/18 12:45 cefTRIAXone [Rocephin] 2 gm IVPUSH Q24H 01/11/18 13:00 Premix Bag 1 bag metroNIDAZOLE/Normal Saline [Flagyl 500 MG in NS 100 ML] 100 ml IV Q8H 01/11/18 14:00 Vancomycin 750 mg Vancomycin 500 mg Sodium Chloride 0.9% [Normal Saline] 250 ml IV Q12H 01/11/18 Dinner Regular Diet [DIET] 01/11/18 Lunch Clear Liquid Diet [DIET] - Plan Plan:: CODE STATUS discussed with the patient and his and the patient is full code. He wants full care is up to the point of and full resuscitation if his heart were to stop beating or he were to stop breathing.
[2018-01-11] MEDS: cefTRIAXone 2 GM Vial IVPUSH SCH (13:06)
[2018-01-11] MEDS: [UNRECOGNIZED DRUG - OTHER] IV SCH ×2 (13:15→20:46)
[2018-01-11] MEDS: METRONIDAZOLE IV SCH ×2 (13:15→20:46)
[2018-01-11] MEDS: NORMAL SALINE IV SCH ×2 (13:15→20:46)
[2018-01-11] MEDS: Vancomycin 750 MG, Vancomycin 500 MG in Sodium Chloride 0.9% 250 ML IV SCH (14:18)
[2018-01-11] MEDS ORDERED: Sodium Chloride 0.9% 1,000 ML IV SCH (17:00)
[2018-01-11] MEDS ORDERED: Naproxen 250 MG Tab PO ONE (18:24)
[2018-01-11] MEDS: rOPINIRole 0.5 MG Tab PO SCH (20:44)
[2018-01-11] MEDS ORDERED: Heparin Sodium 5,000 Units/ML Vial SUBCUT SCH (22:00)
[2018-01-12] MEDS: Vancomycin 750 MG, Vancomycin 500 MG in Sodium Chloride 0.9% 250 ML IV SCH ×2 (02:17→14:09)
[2018-01-12] MEDS: [UNRECOGNIZED DRUG - OTHER] IV SCH ×3 (04:57→21:13)
[2018-01-12] MEDS: METRONIDAZOLE IV SCH ×3 (04:57→21:13)
[2018-01-12] MEDS: NORMAL SALINE IV SCH ×3 (04:57→21:13)
[2018-01-12] MEDS: Levothyroxine 25 MCG Tab PO SCH (06:06)
--- NOTE | 2018-01-12 07:14 | PCM.PN ---
- General Info Date of Service: 01/12/18 Subjective Update: Patient is a 67-year-old male admitted for sepsis with shock and acute kidney injury currently on hospital day #3. Doing very well. VSS, labs have normalized. Ankle redness completely resolved. Slept well, no CP, no SOB. No N/V/loose stools have resolved. Still has some abdominal cramping. Right now working dx is that this shock was due to infection from the ankle. However, the question of whether this could have been a colitis is still on the table. Discussed at length with the patient today. - Patient Data Vitals - Most Recent: Last Vital Signs Temp 36.5 C 01/12/18 06:00 Pulse 54 L 01/12/18 04:00 Resp 14 01/12/18 04:00 BP 113/67 01/12/18 04:00 Pulse Ox 93 L 01/12/18 04:00 Weight - Most Recent: 83.461 kg I&O - Last 24 Hours: Intake & Output 01/11/18 01/12/18 01/12/18 22:59 06:59 14:59 Intake Total 840 651 Output Total 400 450 Balance 440 201 Lab Results Last 24 Hours: Laboratory Results - last 24 hr 01/11/18 01/11/18 01/11/18 Range/Units 07:15 07:15 07:15 WBC 10.9 (4.5-12.0) X10-3/uL RBC 4.04 L (4.30-5.75) x10(6)uL Hgb 12.5 (11.5-15.5) g/dL Hct 36.5 (30.0-51.3) % MCV 90.3 (80-96) fL MCH 31.0 (27.7-33.6) pg MCHC 34.4 (32.2-35.4) g/dL RDW 12.9 (11.5-15.5) % Plt Count 247 (125-369) X10(3)uL MPV 8.4 (7.4-10.4) fL Neut % (Auto) 84.4 H (46-82) % Lymph % (Auto) 8.5 L (13-37) % Amador % (Auto) 6.1 (4-12) % Eos % (Auto) 1 (1.0-5.0) % Baso % (Auto) 1 (0-2) % Neut # (Auto) 9.1 H (1.6-8.3) # Lymph # (Auto) 0.9 (0.6-5.0) # Amador # (Auto) 0.7 (0.0-1.3) # Eos # (Auto) 0.1 (0.0-0.8) # Baso # (Auto) 0.1 (0.0-0.2) # Sodium 137 (135-145) mmol/L Potassium 4.1 (3.5-5.3) mmol/L Chloride 105 (100-110) mmol/L Carbon Dioxide 24 (21-32) mmol/L BUN 15 (7-18) mg/dL Creatinine 1.0 (0.70-1.30) mg/dL Est Cr Clr Drug Dosing 75.03 mL/min Estimated GFR (MDRD) > 60 (>60) BUN/Creatinine Ratio 15.0 (9-20) Glucose 96 (80-116) mg/dL Lactic Acid 0.7 (0.4-2.2) mmol/L Calcium 8.2 L (8.6-10.2) mg/dL Total Bilirubin 0.3 (0.1-1.3) mg/dL AST 16 (5-25) IU/L ALT 12 D (12-36) U/L Alkaline Phosphatase 57 (56-112) IU/L Total Protein 5.4 L (6.0-8.0) g/dL Albumin 2.4 L (3.2-4.6) g/dL Globulin 3.0 g/dL Albumin/Globulin Ratio 0.8 01/12/18 01/12/18 Range/Units 06:10 06:10 WBC 6.8 (4.5-12.0) X10-3/uL RBC 3.68 L (4.30-5.75) x10(6)uL Hgb 11.1 L (11.5-15.5) g/dL Hct 33.6 (30.0-51.3) % MCV 91.3 (80-96) fL MCH 30.0 (27.7-33.6) pg MCHC 32.9 (32.2-35.4) g/dL RDW 12.7 (11.5-15.5) % Plt Count 227 (125-369) X10(3)uL MPV 8.1 (7.4-10.4) fL Neut % (Auto) 72.3 (46-82) % Lymph % (Auto) 14.8 (13-37) % Amador % (Auto) 8.6 (4-12) % Eos % (Auto) 4 (1.0-5.0) % Baso % (Auto) 1 (0-2) % Neut # (Auto) 5.0 (1.6-8.3) # Lymph # (Auto) 1.0 (0.6-5.0) # Amador # (Auto) 0.6 (0.0-1.3) # Eos # (Auto) 0.2 (0.0-0.8) # Baso # (Auto) 0.0 (0.0-0.2) # Sodium 138 (135-145) mmol/L Potassium 3.9 (3.5-5.3) mmol/L Chloride 106 (100-110) mmol/L Carbon Dioxide 25 (21-32) mmol/L BUN 9 (7-18) mg/dL Creatinine 0.8 (0.70-1.30) mg/dL Est Cr Clr Drug Dosing 93.78 mL/min Estimated GFR (MDRD) > 60 (>60) BUN/Creatinine Ratio 11.3 (9-20) Glucose 87 (80-116) mg/dL Lactic Acid (0.4-2.2) mmol/L Calcium 8.2 L (8.6-10.2) mg/dL Total Bilirubin 0.2 (0.1-1.3) mg/dL AST 15 (5-25) IU/L ALT 10 L D (12-36) U/L Alkaline Phosphatase 50 L (56-112) IU/L Total Protein 5.2 L (6.0-8.0) g/dL Albumin 2.1 L (3.2-4.6) g/dL Globulin 3.1 g/dL Albumin/Globulin Ratio 0.7 Otoniel Results Last 24 Hours: Microbiology 01/10/18 06:15 Aerobic Blood Culture - Preliminary Blood - Venous NO GROWTH AFTER 2 DAYS Anaerobic Blood Culture - Final 01/10/18 06:25 Aerobic Blood Culture - Preliminary Blood - Venous - Lab Draw NO GROWTH AFTER 2 DAYS Anaerobic Blood Culture - Final 01/10/18 06:10 Urine Culture - Preliminary Urine, Catheterized NO GROWTH AFTER 1 DAY Med Orders - Current: Current Medications Acetaminophen (Tylenol) 650 mg RECTAL Q4H PRN PRN Reason: Mild pain/fever Acetaminophen (Tylenol) 650 mg PO Q4H PRN PRN Reason: Pain (Mild 1-3)/fever Last Admin: 01/11/18 16:34 Dose: 650 mg Carboxymethylcellulose (Refresh Optive) 0 ml EYEBOTH ASDIRECTED PRN PRN Reason: Dry Eyes Ceftriaxone Sodium (Rocephin) 2 gm IVPUSH Q24H [facility] Last Admin: 01/11/18 13:06 Dose: 2 gm Gabapentin (Neurontin) 300 mg PO TID [facility] Last Admin: 01/11/18 20:44 Dose: 300 mg Heparin Sodium (Porcine) (Heparin Sodium) 5,000 units SUBCUT Q12H [facility] Last Admin: 01/11/18 21:39 Dose: 5,000 units Hydromorphone HCl (Dilaudid) 0.5 mg IVPUSH Q2H PRN PRN Reason: Pain (severe 7-10) Premix 1 bag/ Metronidazole 100 mls @ 100 mls/hr IV Q8H [facility] Last Admin: 01/12/18 04:57 Dose: 100 mls/hr Vancomycin HCl 750 mg/Vancomycin HCl 500 mg/ Sodium Chloride 250 mls @ 165 mls/ hr IV Q12H [facility] Last Admin: 01/12/18 02:17 Dose: 165 mls/hr Levothyroxine Sodium (Levothyroxine) 25 mcg PO 0600 [facility] Last Admin: 01/12/18 06:06 Dose: 25 mcg Ondansetron HCl (Zofran Odt) 4 mg PO Q4H PRN PRN Reason: nausea, able to take PO Pantoprazole Sodium (Protonix Iv) 40 mg IVPUSH Q24H [facility] Last Admin: 01/11/18 11:24 Dose: 40 mg Ropinirole HCl (Requip) 0.5 mg PO BEDTIME [facility] Last Admin: 01/11/18 20:44 Dose: 0.5 mg Sodium Chloride (Saline Flush) 10 ml FLUSH ASDIRECTED PRN PRN Reason: Keep Vein Open Last Admin: 01/10/18 05:40 Dose: 10 ml Sodium Chloride (Saline Flush) 10 ml FLUSH ASDIRECTED PRN PRN Reason: Keep Vein Open Last Admin: 01/10/18 10:05 Dose: 10 ml Vancomycin HCl (Pharmacy To Dose - Vancomycin) 1 dose .XX ASDIRECTED [facility] Discontinued Medications Belladonna Alkaloids/Opium (B & O Supprettes No. 15a) 1 supp RECTAL ONETIME ONE Stop: 01/10/18 11:16 Last Admin: 01/10/18 11:34 Dose: 1 supp Ceftriaxone Sodium (Rocephin) Confirm Administered Dose 2 gm .ROUTE .STK-MED ONE Stop: 01/10/18 07:25 Last Admin: 01/10/18 07:28 Dose: Not Given Ceftriaxone Sodium (Rocephin) 2 gm IVPUSH Q24H [facility] Stop: 01/10/18 07:46 Last Admin: 01/10/18 07:55 Dose: 2 gm Gabapentin (Neurontin) 900 mg PO TID [facility] Heparin Sodium (Porcine) (Heparin Sodium) 5,000 units SUBCUT Q12H [facility] Last Admin: 01/11/18 11:23 Dose: 5,000 units Hydromorphone HCl (Dilaudid) 0.5 mg IVPUSH ONETIME ONE Stop: 01/10/18 07:19 Last Admin: 01/10/18 07:53 Dose: 0.5 mg Sodium Chloride (Normal Saline) 1,000 mls @ 999 mls/hr IV .BOLUS ONE Stop: 01/10/18 06:56 Last Admin: 01/10/18 05:40 Dose: 999 mls/hr Sodium Chloride (Normal Saline) 1,000 mls @ 999 mls/hr IV .BOLUS ONE Stop: 01/10/18 08:03 Last Admin: 01/10/18 07:05 Dose: 999 mls/hr Sodium Chloride (Normal Saline) 500 mls @ 500 mls/hr IV .BOLUS ONE Stop: 01/10/18 08:09 Last Admin: 01/10/18 07:45 Dose: 500 mls/hr Ceftriaxone Sodium 2 gm/ (Sodium Chloride) 100 mls @ 200 mls/hr IVPUSH ONETIME ONE Stop: 01/10/18 07:41 Last Admin: 01/10/18 07:28 Dose: Not Given Ceftriaxone Sodium 2 gm/ (Sodium Chloride) 100 mls @ 200 mls/hr IVPUSH ONETIME ONE Stop: 01/10/18 07:56 Last Admin: 01/10/18 07:55 Dose: Not Given Vancomycin HCl 500 mg/Vancomycin HCl 750 mg/ Sodium Chloride 250 mls @ 200 mls/ hr IV ONETIME ONE Stop: 01/10/18 09:29 Last Admin: 01/10/18 08:09 Dose: 200 mls/hr Metronidazole 500 mg/ Premix 100 mls @ 100 mls/hr IV ONETIME ONE Stop: 01/10/18 09:23 Last Admin: 01/10/18 10:27 Dose: 100 mls/hr Sodium Chloride (Normal Saline) 1,000 mls @ 100 mls/hr IV ASDIRECTED [facility] Sodium Chloride (Normal Saline) 1,000 mls @ 150 mls/hr IV ASDIRECTED [facility] Last Admin: 01/11/18 08:22 Dose: 150 mls/hr Sodium Chloride (Normal Saline) 1,000 mls @ 50 mls/hr IV ASDIRECTED [facility] Last Admin: 01/11/18 18:54 Dose: 50 mls/hr Magnesium Citrate (Citrate Of Magnesia) 296 ml PO ONETIME ONE Stop: 01/10/18 12:41 Last Admin: 01/10/18 14:57 Dose: 296 ml Naproxen (Naprosyn) 250 mg PO ONETIME ONE Stop: 01/11/18 18:25 Last Admin: 01/11/18 18:33 Dose: 250 mg Ondansetron HCl (Zofran) 4 mg IVPUSH ONETIME ONE Stop: 01/10/18 07:19 Last Admin: 01/10/18 07:50 Dose: 4 mg - Exam General: Alert, Oriented, Cooperative, No Acute Distress HEENT: Pupils Equal, Pupils Reactive Neck: Supple Lungs: Clear to Auscultation, Normal Respiratory Effort Cardiovascular: Regular Rate, Regular Rhythm, No Murmurs GI/Abdominal Exam: Normal Bowel Sounds, Soft, No Distention, Tender (Still moderately tender in the LLQ. No rebound, no guarding, no rigidity.) Back Exam: Normal Inspection Extremities: Normal Inspection, No Pedal Edema (edema on right ankle much improved, redness gone.) Psy/Mental Status: Alert, Normal Affect, Normal Mood - Problem List & Annotations (1) Sepsis SNOMED Code(s): 04251803 Code(s): A41.9 - SEPSIS, UNSPECIFIED ORGANISM Status: Acute Current Visit : Yes Annotation/Comment:: Unclear etiology, suspect cellulitis as most likely culprit. Plan vancomycin, Rocephin, Flagyl. Would continue this until blood cultures return negative and then patient could be discharged on oral clindamycin. Would continue a week to 10 days of outpatient therapy orally. Add Florastor to reduce risk of C. difficile colitis at discharge once abdominal pain has resolved and ileus resolved. (2) BERTHA (acute kidney injury) SNOMED Code(s): 72105587 Code(s): N17.9 - ACUTE KIDNEY FAILURE, UNSPECIFIED Status: Acute Current Visit: Yes Annotation/Comment:: Etiology likely hypovolemia due to severe sepsis/septic shock. Completely resolved. DC Nino catheter today and bladder scan with straight catheter as needed. (3) Cellulitis of right ankle SNOMED Code(s): 54619387 Code(s): L03.115 - CELLULITIS OF RIGHT LOWER LIMB Status: Acute Current Visit: Yes Annotation/Comment:: Possible etiology of septic shock. Continue vancomycin for MRSA coverage and Rocephin and Flagyl should give good coverage for gram-positive, gram negatives and anaerobes. De-escalate to by mouth antibiotics when blood cultures return negative. (4) Colitis SNOMED Code(s): 17522914 Code(s): K52.9 - NONINFECTIVE GASTROENTERITIS AND COLITIS, UNSPECIFIED Status: Acute Current Visit: Yes Annotation/Comment:: CT read of possible ischemic type colitis caused by stool called stercoral colitis. Constipation now resolved. Repeat flat and upright x-ray today. If patient continues with symptoms, may consider repeating CT w/PO and IV contrast tomorrow am prior to discharge to clarify antibiotic choice. (5) Obstipation SNOMED Code(s): 998968096 Code(s): K59.00 - CONSTIPATION, UNSPECIFIED Status: Acute Current Visit: Yes Annotation/Comment:: Narcotic induced most likely etiology. See above. (6) DVT prophylaxis SNOMED Code(s): 949865504, 017780730 Code(s): GVI1866 - Status: Acute Current Visit: Yes Annotation/Comment :: Will change to Lovenox. (7) Neuropathy SNOMED Code(s): 933410894 Code(s): G62.9 - POLYNEUROPATHY, UNSPECIFIED Status: Acute Current Visit : Yes Annotation/Comment:: Patient previously on gabapentin 900 mg TID. Dose reduced due to renal issues. Has pills at home he could split, so recommended trial of dose reduction due to age and this is a good time to try it since he is already at a lower dose. Will plan to continue 450 mg TID and he can go home on this. - Problem List Review Problem List Initiated/Reviewed/Updated: Yes - My Orders Last 24 Hours: My Active Orders 01/11/18 12:45 cefTRIAXone [Rocephin] 2 gm IVPUSH Q24H 01/11/18 13:00 Premix Bag 1 bag metroNIDAZOLE/Normal Saline [Flagyl 500 MG in NS 100 ML] 100 ml IV Q8H 01/11/18 14:00 Vancomycin 750 mg Vancomycin 500 mg Sodium Chloride 0.9% [Normal Saline] 250 ml IV Q12H Vancomycin Pharmacy to Dose [Pharmacy to Dose - Vancomycin] 1 dose .XX ASDIRECTED 01/11/18 22:00 Heparin Sodium 5,000 units SUBCUT Q12H 01/11/18 Dinner Regular Diet [DIET] 01/12/18 05:11 Abdomen 2V AP Flat Upright [CR] AM 01/12/18 07:03 DC Nino Catheter [Urinary Catheter Removal] [RC] Per Unit Routine Convert IV to Saline Lock [OM.PC] Routine 01/12/18 07:07 Patient Status Manage Transfer [TRANSFER] Routine 01/13/18 01:30 VANCOMYCIN TROUGH [CHEM] Timed - Plan Plan:: CODE STATUS discussed with the patient and his and the patient is full code. He wants full care is up to the point of and full resuscitation if his heart were to stop beating or he were to stop breathing.
[2018-01-12] MEDS ORDERED: Gabapentin 300 MG Cap PO SCH (09:00)
[2018-01-12] MEDS: Enoxaparin 40 MG/0.4 ML Syringe SUBCUT SCH (10:23)
--- NOTE | 2018-01-12 12:08 | CR ---
INDICATION: Abdominal pain. ABDOMEN, TWO VIEWS: Four images of the abdomen were obtained in supine and decubitus projections, 01/12/2018, and were compared with 01/11/2018. An almost identical appearance is noted compared with the previous study. Air fluid levels are again noted with mildly distended air-filled loops of mostly large bowel, but also small bowel. There is paucity of gas in the area of the rectum. The findings may represent paralytic ileus or hypotonicity of the bowel as previously suggested. A definite new or acute abnormality is not identified. MTDD
[2018-01-12] MEDS: cefTRIAXone 2 GM Vial IVPUSH SCH (13:08)
[2018-01-12] MEDS: Pantoprazole 40 MG Tab.CR PO SCH (14:09)
[2018-01-12] MEDS: Pantoprazole 40 MG Vial IVPUSH SCH (14:34)
[2018-01-12] MEDS: rOPINIRole 0.5 MG Tab PO SCH (21:13)
[2018-01-12] MEDS: Acetaminophen 325 MG Tab PO PRN (23:25)
[2018-01-13] MEDS: Vancomycin 750 MG, Vancomycin 500 MG in Sodium Chloride 0.9% 250 ML IV SCH ×2 (02:15→13:31)
[2018-01-13] MEDS: METRONIDAZOLE IV SCH ×2 (05:27→12:25)
[2018-01-13] MEDS: NORMAL SALINE IV SCH ×2 (05:27→12:25)
[2018-01-13] MEDS: [UNRECOGNIZED DRUG - OTHER] IV SCH ×2 (05:27→12:25)
[2018-01-13] MEDS: Acetaminophen 325 MG Tab PO PRN (05:30)
[2018-01-13] MEDS: Pantoprazole 40 MG Tab.CR PO SCH (05:53)
[2018-01-13] MEDS: Levothyroxine 25 MCG Tab PO SCH (05:53)
[2018-01-13] MEDS: Enoxaparin 40 MG/0.4 ML Syringe SUBCUT SCH (08:14)
--- NOTE | 2018-01-13 10:03 | PCM.PN ---
- General Info Date of Service: 01/13/18 Subjective Update: Todd complains of minimal abdominal pain generalized, and diarrhea. He also complains that the left ankle is slightly painful than yesterday. He denies any systemic symptoms and feels ready to go home today. - Review of Systems HEENT: Reports: No Symptoms Pulmonary: Reports: No Symptoms Cardiovascular: Reports: No Symptoms - Patient Data Vitals - Most Recent: Last Vital Signs Temp 98.1 F 01/13/18 07:30 Pulse 55 L 01/13/18 07:30 Resp 14 01/13/18 07:30 BP 122/77 01/13/18 07:30 Pulse Ox 97 01/13/18 07:30 Weight - Most Recent: 83.28 kg I&O - Last 24 Hours: Intake & Output 01/12/18 01/13/18 01/13/18 22:59 06:59 14:59 Intake Total 350 500 Output Total 750 475 Balance -400 25 Lab Results Last 24 Hours: Laboratory Results - last 24 hr 01/13/18 01/13/18 01/13/18 Range/Units 06:05 06:05 06:05 WBC 6.2 (4.5-12.0) X10-3/uL RBC 3.95 L (4.30-5.75) x10(6)uL Hgb 12.3 (11.5-15.5) g/dL Hct 35.7 (30.0-51.3) % MCV 90.4 (80-96) fL MCH 31.1 (27.7-33.6) pg MCHC 34.4 (32.2-35.4) g/dL RDW 12.7 (11.5-15.5) % Plt Count 266 (125-369) X10(3)uL MPV 7.9 (7.4-10.4) fL Neut % (Auto) 69.6 (46-82) % Lymph % (Auto) 15.7 (13-37) % Pickett % (Auto) 8.2 (4-12) % Eos % (Auto) 6 H (1.0-5.0) % Baso % (Auto) 1 (0-2) % Neut # (Auto) 4.3 (1.6-8.3) # Lymph # (Auto) 1.0 (0.6-5.0) # Pickett # (Auto) 0.5 (0.0-1.3) # Eos # (Auto) 0.4 (0.0-0.8) # Baso # (Auto) 0.0 (0.0-0.2) # Sodium 139 (135-145) mmol/L Potassium 3.6 (3.5-5.3) mmol/L Chloride 105 (100-110) mmol/L Carbon Dioxide 32 (21-32) mmol/L BUN 8 (7-18) mg/dL Creatinine 0.8 (0.70-1.30) mg/dL Est Cr Clr Drug Dosing 93.78 mL/min Estimated GFR (MDRD) > 60 (>60) BUN/Creatinine Ratio 10.0 (9-20) Glucose 89 (80-116) mg/dL Calcium 8.7 (8.6-10.2) mg/dL Total Bilirubin 0.2 (0.1-1.3) mg/dL AST 20 D (5-25) IU/L ALT 16 D (12-36) U/L Alkaline Phosphatase 52 L (56-112) IU/L C-Reactive Protein 4.8 H* (0.5-0.9) mg/dL Total Protein 5.9 L (6.0-8.0) g/dL Albumin 2.4 L (3.2-4.6) g/dL Globulin 3.5 g/dL Albumin/Globulin Ratio 0.7 Otoniel Results Last 24 Hours: Microbiology 01/10/18 06:15 Aerobic Blood Culture - Preliminary Blood - Venous NO GROWTH AFTER 3 DAYS Anaerobic Blood Culture - Final 01/10/18 06:25 Aerobic Blood Culture - Preliminary Blood - Venous - Lab Draw NO GROWTH AFTER 3 DAYS Anaerobic Blood Culture - Final 01/10/18 06:10 Urine Culture - Final Urine, Catheterized NO GROWTH AFTER 2 DAYS Med Orders - Current: Current Medications Acetaminophen (Tylenol) 650 mg RECTAL Q4H PRN PRN Reason: Mild pain/fever Acetaminophen (Tylenol) 650 mg PO Q4H PRN PRN Reason: Pain (Mild 1-3)/fever Last Admin: 01/13/18 05:30 Dose: 650 mg Carboxymethylcellulose (Refresh Optive) 0 ml EYEBOTH ASDIRECTED PRN PRN Reason: Dry Eyes Ceftriaxone Sodium (Rocephin) 2 gm IVPUSH Q24H [facility] Last Admin: 01/12/18 13:08 Dose: 2 gm Enoxaparin Sodium (Lovenox) 40 mg SUBCUT DAILY [facility] Last Admin: 01/13/18 08:14 Dose: 40 mg Gabapentin 100 mg/ Gabapentin (300 mg) 400 mg PO TID [facility] Last Admin: 01/13/18 08:14 Dose: 400 mg Hydromorphone HCl (Dilaudid) 0.5 mg IVPUSH Q2H PRN PRN Reason: Pain (severe 7-10) Premix 1 bag/ Metronidazole 100 mls @ 100 mls/hr IV Q8H [facility] Last Admin: 01/13/18 05:27 Dose: 100 mls/hr Vancomycin HCl 750 mg/Vancomycin HCl 500 mg/ Sodium Chloride 250 mls @ 165 mls/ hr IV Q12H [facility] Last Admin: 01/13/18 02:15 Dose: 165 mls/hr Levothyroxine Sodium (Levothyroxine) 25 mcg PO 0600 [facility] Last Admin: 01/13/18 05:53 Dose: 25 mcg Ondansetron HCl (Zofran Odt) 4 mg PO Q4H PRN PRN Reason: nausea, able to take PO Pantoprazole Sodium (Protonix) 40 mg PO 0600 [facility] Last Admin: 01/13/18 05:53 Dose: 40 mg Ropinirole HCl (Requip) 0.5 mg PO BEDTIME [facility] Last Admin: 01/12/18 21:13 Dose: 0.5 mg Sodium Chloride (Saline Flush) 10 ml FLUSH ASDIRECTED PRN PRN Reason: Keep Vein Open Last Admin: 01/10/18 05:40 Dose: 10 ml Sodium Chloride (Saline Flush) 10 ml FLUSH ASDIRECTED PRN PRN Reason: Keep Vein Open Last Admin: 01/10/18 10:05 Dose: 10 ml Vancomycin HCl (Pharmacy To Dose - Vancomycin) 1 dose .XX ASDIRECTED [facility] Discontinued Medications Belladonna Alkaloids/Opium (B & O Supprettes No. 15a) 1 supp RECTAL ONETIME ONE Stop: 01/10/18 11:16 Last Admin: 01/10/18 11:34 Dose: 1 supp Ceftriaxone Sodium (Rocephin) Confirm Administered Dose 2 gm .ROUTE .STK-MED ONE Stop: 01/10/18 07:25 Last Admin: 01/10/18 07:28 Dose: Not Given Ceftriaxone Sodium (Rocephin) 2 gm IVPUSH Q24H [facility] Stop: 01/10/18 07:46 Last Admin: 01/10/18 07:55 Dose: 2 gm Gabapentin (Neurontin) 900 mg PO TID [facility] Gabapentin (Neurontin) 300 mg PO TID [facility] Last Admin: 01/11/18 20:44 Dose: 300 mg Heparin Sodium (Porcine) (Heparin Sodium) 5,000 units SUBCUT Q12H [facility] Last Admin: 01/11/18 11:23 Dose: 5,000 units Heparin Sodium (Porcine) (Heparin Sodium) 5,000 units SUBCUT Q12H [facility] Last Admin: 01/11/18 21:39 Dose: 5,000 units Hydromorphone HCl (Dilaudid) 0.5 mg IVPUSH ONETIME ONE Stop: 01/10/18 07:19 Last Admin: 01/10/18 07:53 Dose: 0.5 mg Sodium Chloride (Normal Saline) 1,000 mls @ 999 mls/hr IV .BOLUS ONE Stop: 01/10/18 06:56 Last Admin: 01/10/18 05:40 Dose: 999 mls/hr Sodium Chloride (Normal Saline) 1,000 mls @ 999 mls/hr IV .BOLUS ONE Stop: 01/10/18 08:03 Last Admin: 01/10/18 07:05 Dose: 999 mls/hr Sodium Chloride (Normal Saline) 500 mls @ 500 mls/hr IV .BOLUS ONE Stop: 01/10/18 08:09 Last Admin: 01/10/18 07:45 Dose: 500 mls/hr Ceftriaxone Sodium 2 gm/ (Sodium Chloride) 100 mls @ 200 mls/hr IVPUSH ONETIME ONE Stop: 01/10/18 07:41 Last Admin: 01/10/18 07:28 Dose: Not Given Ceftriaxone Sodium 2 gm/ (Sodium Chloride) 100 mls @ 200 mls/hr IVPUSH ONETIME ONE Stop: 01/10/18 07:56 Last Admin: 01/10/18 07:55 Dose: Not Given Vancomycin HCl 500 mg/Vancomycin HCl 750 mg/ Sodium Chloride 250 mls @ 200 mls/ hr IV ONETIME ONE Stop: 01/10/18 09:29 Last Admin: 01/10/18 08:09 Dose: 200 mls/hr Metronidazole 500 mg/ Premix 100 mls @ 100 mls/hr IV ONETIME ONE Stop: 01/10/18 09:23 Last Admin: 01/10/18 10:27 Dose: 100 mls/hr Sodium Chloride (Normal Saline) 1,000 mls @ 100 mls/hr IV ASDIRECTED [facility] Sodium Chloride (Normal Saline) 1,000 mls @ 150 mls/hr IV ASDIRECTED [facility] Last Admin: 01/11/18 08:22 Dose: 150 mls/hr Sodium Chloride (Normal Saline) 1,000 mls @ 50 mls/hr IV ASDIRECTED [facility] Last Admin: 01/11/18 18:54 Dose: 50 mls/hr Magnesium Citrate (Citrate Of Magnesia) 296 ml PO ONETIME ONE Stop: 01/10/18 12:41 Last Admin: 01/10/18 14:57 Dose: 296 ml Naproxen (Naprosyn) 250 mg PO ONETIME ONE Stop: 01/11/18 18:25 Last Admin: 01/11/18 18:33 Dose: 250 mg Ondansetron HCl (Zofran) 4 mg IVPUSH ONETIME ONE Stop: 01/10/18 07:19 Last Admin: 01/10/18 07:50 Dose: 4 mg Pantoprazole Sodium (Protonix Iv) 40 mg IVPUSH Q24H [facility] Last Admin: 01/12/18 14:34 Dose: Not Given - Exam Quality Assessment: No: Supplemental Oxygen General: Alert, Oriented HEENT: Pupils Equal, Pupils Reactive Neck: Supple Lungs: Clear to Auscultation Cardiovascular: Regular Rate GI/Abdominal Exam: Soft, Non-Tender, No Organomegaly, No Mass. No: Tender Extremities: Redness, Other (ankle is slightly red,No drainage or tenderness) - Problem List & Annotations (1) Cellulitis of right ankle SNOMED Code(s): 26551499 Code(s): L03.115 - CELLULITIS OF RIGHT LOWER LIMB Status: Acute Current Visit: Yes (2) Colitis SNOMED Code(s): 67455523 Code(s): K52.9 - NONINFECTIVE GASTROENTERITIS AND COLITIS, UNSPECIFIED Status: Acute Current Visit: Yes (3) Dehydration SNOMED Code(s): 46137152 Code(s): E86.0 - DEHYDRATION Status: Acute Current Visit: Yes (4) Diarrhea SNOMED Code(s): 70773764 Code(s): R19.7 - DIARRHEA, UNSPECIFIED Status: Acute Current Visit: Yes Qualifiers: Diarrhea type: unspecified type Qualified Code(s): R19.7 - Diarrhea, unspecified (5) Status post ankle arthrodesis SNOMED Code(s): 67522807304365, 692460183, 77548973921035 Code(s): Z98.1 - ARTHRODESIS STATUS Status: Acute Current Visit: Yes - Problem List Review Problem List Initiated/Reviewed/Updated: Yes - My Orders Last 24 Hours: My Active Orders 01/13/18 06:05 SEDIMENTATION RATE MANUAL [HEME] Routine 01/13/18 09:10 C DIFFICILE, CYTOTOXIN B Stat - Plan Plan:: Blood cultures are negative. I'll obtain C. difficile and ESR before discharge today.
[2018-01-13] MEDS: Sodium Chloride 0.9% 10 ML Syringe FLUSH PRN ×3 (11:14→15:05)
[2018-01-13] MEDS: cefTRIAXone 2 GM Vial IVPUSH SCH (11:46)
--- NOTE | 2018-01-14 09:13 | DISCH ---
DISCHARGE DATE: 01/13/2018 REASON FOR ADMISSION: 1. Question sepsis. 2. Cellulitis, ankle, right. DISCHARGE DIAGNOSES: 1. Undifferentiated shock. 2. Ankle cellulitis, right. 3. Status post open reduction and internal fixation. 4. Abdominal colitis. 5. Acute kidney injury, resolved. BRIEF HISTORY/HOSPITAL COURSE: This is a 67-year-old male, who collapsed when he was at [facility] and was found to have a very low blood pressure on admission. A suspicion for sepsis was made based on recent surgery on the right ankle and cellulitis around that area. He was markedly dehydrated. He was treated with IV fluids and antibiotics, vancomycin and Rocephin IV, and improved. He complained of abdominal pain at admission, which was found to be due to constipation and possibly ischemic colitis. He was treated with MiraLax and his symptoms improved, but now had diarrhea by the time of discharge. Consultations to both Dr. Esquivel and Dr. Bertrand were made because of the abdominal pain and the ankle surgery, and they cleared him by the time of discharge. Blood cultures were negative x3 days. His urine was also negative. I discharged him home on cephalexin 500 mg q.i.d. for 1 week. I recommended he see Dr. Malave on Tuesday. I sent a stool for C. difficile because of the diarrhea, but the results are pending at the time of discharge. He was started on gabapentin before discharge because of pain and apart from the cephalexin he went back on his other home medications. He was discharged in stable condition and with followup on Tuesday with Dr. Malave. I spent more than 35 minutes in discharge of the patient. /[id number] JOAN/BAKARI
== END 2018-01-13 16:06 | disposition home or self-care (01) | DRG 871 ==
LOC: FB.ED 05:34 → FB.ICU 09:06 → FB.MS 01-12 07:07
PROVIDERS: ADMIT Family Medicine; ATTEND Family Medicine
DX: A41.9 Sepsis, unspecified organism (principal); R65.21 Severe sepsis with septic shock; N17.9 Acute kidney failure, unspecified; L03.115 Cellulitis of right lower limb; K55.9 Vascular disorder of intestine, unspecified; I10 Essential (primary) hypertension; E03.9 Hypothyroidism, unspecified; Z87.11 Personal history of peptic ulcer disease; E86.0 Dehydration; K59.03 Drug induced constipation; T40.605A Adverse effect of unspecified narcotics, initial encounter; Y92.009 Unspecified place in unspecified non-institutional (private) residence as the place of occurrence of the external cause; K52.9 Noninfective gastroenteritis and colitis, unspecified; R10.9 Unspecified abdominal pain; R33.9 Retention of urine, unspecified; R42 Dizziness and giddiness; R19.7 Diarrhea, unspecified; Z86.73 Personal history of transient ischemic attack (TIA), and cerebral infarction without residual deficits; E78.00 Pure hypercholesterolemia, unspecified; N40.0 Benign prostatic hyperplasia without lower urinary tract symptoms; G60.9 Hereditary and idiopathic neuropathy, unspecified; G72.9 Myopathy, unspecified; E55.9 Vitamin D deficiency, unspecified; Z80.0 Family history of malignant neoplasm of digestive organs; Z90.3 Acquired absence of stomach [part of]; H54.7 Unspecified visual loss; H25.13 Age-related nuclear cataract, bilateral; H35.30 Unspecified macular degeneration; Z91.012 Allergy to eggs; Z88.5 Allergy status to narcotic agent; Z88.8 Allergy status to other drugs, medicaments and biological substances
CPT/HCPCS: 36415; 71045; 74176; 80048; 80053; 81001; 83605; 85025; 85610; 86850; 86900; 86901; 87040 ×2; 87086; 93005; 96360; 96361; 96365; 96375; 99285; J0696; J1170; J2405; J3370 ×2; J7030 ×2; J7040; J7050 ×3; 51701; 51798; 73610-RT; 74019; 83735; 84100; 85651; 86140; 87324; A9270-GY; C9113; J1644; J1650; J3490